=== PATIENT | female | born 1940 | race Caucasian/White ===

== ENCOUNTER → 2017-01-09 | Outpatient (CLI) | payer OTHER ==
--- NOTE | 2017-01-23 08:12 | MAMMOGRAPHY REPORT ---
BILATERAL DIGITAL SCREENING MAMMOGRAM WITH CAD: 01/09/2017 CLINICAL HISTORY: Routine screening. Patient has no complaints. TECHNIQUE: Bilateral CC and MLO views were obtained. Current study was also evaluated with a Compute r Aided Detection (CAD) system. COMPARISON: No prior exams were available for comparison. BREAST COMPOSITION: The tissue of both breasts is heterogeneously dense, which may obscure small mas ses. FINDINGS: There is an asymmetry in the lateral posterior right breast on the CC view, thought to pro ject superiorly on the MLO view which could represent normal overlapping tissue, although additional spot compression tomosynthesis views and possible ultrasound are recommended if prior outside mammogr ams are not obtained in a timely manner to assess for stability. There are scattered benign rim calcifications bilaterally. No other suspicious mass, architectural di stortion or cluster of microcalcifications is seen. IMPRESSION: ACR BI-RADS CATEGORY 0: INCOMPLETE EVALUATION: NEED ADDITIONAL IMAGING EVALUATION The asymmetry in the lateral, posterior right breast needs additional evaluation. Comparison to prio r outside mammograms would be useful to assess stability, but if the prior outside exams are not obta ined in a timely manner, additional imaging evaluation is needed. The patient will be called to schedule an appointment. Approximately 10% of breast cancers are not detected with mammography. A negative mammographic report should not delay biopsy if a clinically suggestive mass is present. Mari Perry M.D. ay/:01/21/2017 15:47:58 Travel Accommodation Inspector: Anna ALVARADO([place])(Saroj), [facility] letter sent: Need Priors 0 BI-RADS Code: ACR BI-RADS Category 0: Incomplete Evaluation: Need Additional Imaging Evaluation
== END | disposition home or self-care (01) ==
LOC: C.MAMM 13:36
PROVIDERS: ATTEND Neuromusculoskeletal Medicine & OMM
DX: Z12.31 Encounter for screening mammogram for malignant neoplasm of breast (principal); N64.89 Other specified disorders of breast

== ENCOUNTER → 2017-02-06 | Outpatient (CLI) | payer OTHER ==
--- NOTE | 2017-02-06 13:38 | MAMMOGRAPHY REPORT ---
UNILATERAL RIGHT DIGITAL DIAGNOSTIC MAMMOGRAM TOMOSYNTHESIS AND TARGETED RIGHT ULTRASOUND: 02/06/2017 CLINICAL HISTORY: Callback from screening mammogram for right breast asymmetry. TECHNIQUE: Breast tomosynthesis in addition to standard 2D mammography was performed. Spot compress ion right CC and MLO 2-D and tomosynthesis images were obtained. COMPARISON: Comparison is made to exam dated: 01/09/2017 mammogram - [facility]. Prior outside mammograms dated 11/14/2015, 01/09/2014, 01/04/2013, 02/06/2011, 11/22/2008. BREAST COMPOSITION: The tissue of the right breast is heterogeneously dense, which may obscure small masses. FINDINGS: The previously described asymmetry seen within the right lateral breast on the cc view, tho ught to project superiorly on the MLO view, effaces on the additional spot compression views and has the appearance of normal fibroglandular tissue on the additional tomosynthesis images. No suspicious mass, architectural distortion, or other suspicious finding is seen on the additional views. A circ umscribed 7 mm oval mass in the right upper outer quadrant is stable dating back to the 2008 exam and is consistent with a benign intramammary lymph node. Targeted ultrasound was performed of the right lateral breast in the region of the mammographic asymm etry. Sonographically normal tissue is seen, without evidence of a mass or other suspicious sonograp hic abnormality. IMPRESSION: ACR BI-RADS CATEGORY 2: BENIGN, TARGETED ULTRASOUND ACR BI-RADS CATEGORY 2: BENIGN The right breast asymmetry effaces on the additional views, without corresponding suspicious sonograp hic abnormality evident. Findings are benign and compatible with normal fibroglandular tissue. Ther e is no mammographic or targeted sonographic evidence of malignancy. A 1 year screening mammogram is recommended. The patient has been verbally notified of the results. Approximately 10% of breast cancers are not detected with mammography. A negative mammographic report should not delay biopsy if a clinically suggestive mass is present. Ligia Puckett M.D. ah/:02/06/2017 09:04:45 Unstacker: Anna PRICE)(Saroj), [facility] letter sent: Normal 1/2 BI-RADS Code: ACR BI-RADS Category 2: Benign Ultrasound BI-RADS: ACR BI-RADS Category 2: Benign
== END | disposition home or self-care (01) ==
LOC: C.MAMM 08:38
PROVIDERS: ATTEND Neuromusculoskeletal Medicine & OMM
DX: N64.89 Other specified disorders of breast (principal)

== ENCOUNTER → 2017-03-11 | Outpatient (CLI) | payer OTHER ==
[2017-03-11 11:06] LABS: BASO % 0.7 %; BASO ABS # 0.04 K/uL (0-0.2); EOS % 2.5 %; EOS ABS # 0.15 K/uL (0-0.5); HEMATOCRIT 40.8 % (37-47); HEMOGLOBIN 13.5 g/dL (12.0-16.0); LYMPH % 23.7 %; LYMPH ABS # 1.41 K/uL (1.2-3.4); MEAN CELL VOLUME 90.3 fL (80-100); MEAN CORPUSCULAR HEMOGLOBIN 29.9 pg (25-34); MEAN CORPUSCULAR HGB CONC 33.1 g/dl (32-36); MEAN PLATELET VOLUME 10.6 fL (7.4-10.4); NEUT % 68.1 %; NEUT ABS # 4.06 K/uL (1.4-6.5); PLATELET COUNT 190 K/uL (130-400); RED CELL DISTRIBUTION WIDTH CV 13.6 % (11.5-14.5); RED CELL DISTRIBUTION WIDTH SD 44.7 fL (36.4-46.3); WHITE BLOOD COUNT 5.96 K/uL (4.8-10.8)
[2017-03-11 11:15] LABS: ALBUMIN 3.8 gm/dl (3.4-5.0); ALT/SGPT 18 U/L (12-78); AST/SGOT 15 U/L (15-37); BLOOD UREA NITROGEN 17 mg/dl (7-18); CARBON DIOXIDE 30 mmol/L (21-32); CREATININE 0.83 mg/dl (0.60-1.20); GLUCOSE 93 mg/dl (70-99); POTASSIUM 3.8 mmol/L (3.5-5.1); SODIUM 139 mmol/L (136-145)
[2017-03-11 11:16] LABS: ALKALINE PHOSPHATASE 121 U/L (45-117); CHOLESTEROL 137 mg/dl (0-200); LDL CHOLESTEROL CALCULATED 47 mg/dl; TOTAL PROTEIN 6.8 gm/dl (6.4-8.2)
== END | disposition home or self-care (01) ==
LOC: C.LABBC 08:33
PROVIDERS: ATTEND Neuromusculoskeletal Medicine & OMM
DX: Z00.00 Encounter for general adult medical examination without abnormal findings (principal); I10 Essential (primary) hypertension; E78.5 Hyperlipidemia, unspecified

== ENCOUNTER → 2017-04-23 | Outpatient (CLI) | payer OTHER | END | disposition home or self-care (01) | LOC: C.MAMM 14:51 | PROVIDERS: ATTEND Neuromusculoskeletal Medicine & OMM | DX: Z00.00 Encounter for general adult medical examination without abnormal findings (principal); M81.0 Age-related osteoporosis without current pathological fracture ==

== ENCOUNTER 2022-10-06 21:01 | Inpatient (IN) ==
[2022-10-06] MEDS ORDERED: ONDANSETRON INJ 2 MG/ML 2 ML VIAL IV STA (21:26)
[2022-10-06] MEDS ORDERED: SODIUM CHLORIDE 0.9% 1000ML 500 ML IV ONE (21:26)
[2022-10-06 22:21] LABS: Albumin Level 3.7 gm/dl (3.4-5.0); BUN Creatinine Ratio 65.9 (10-20); Bilirubin Direct 0.1 mg/dl (0-0.2); Bilirubin,Total 0.5 mg/dl (0.2-1.0); Calcium 8.7 mg/dl (8.6-10.3); Creatinine Clr Calc Pharmacy 49.6 ml/min; Est GFR (African American) 73.4 ml/min; Est GFR (Non-African American) 63.4 ml/min; Potassium 4.4 mmol/L (3.5-5.1); Total Protein 5.7 gm/dl (6.0-8.3)
[2022-10-06 22:31] LABS: Basophils # (auto) 0.27 K/uL (0-0.2); Basophils % (auto) 1.1 %; Eosinophils # (auto) 0.19 K/uL (0-0.50); Eosinophils % (auto) 0.8 %; Hematocrit (blood only) 34.9 % (37.0-47.0); Hemoglobin 11.2 g/dl (12.0-16.0); Immature Granulocytes % (auto) 0.8 %; Lymphocytes # (auto) 0.73 K/uL (1.2-3.4); Lymphocytes % (auto) 3.1 %; Mean Corpuscular Hemoglobin 26.5 pg (25.0-34.0); Mean Corpuscular Hgb Conc 32.1 g/dL (32.0-36.0); Mean Corpuscular Volume 82.7 fL (80.0-100.0); Mean Platelet Volume 9.6 fL (9.4-12.4); Monocytes # (auto) 0.66 K/uL (0.11-0.59); Monocytes % (auto) 2.8 %; Neutrophils % (auto) 91.4 %; Platelet Count 1252 K/uL (130-400); RDW Standard Deviation 48.3 fL (36.4-46.3); Red Blood Count 4.22 M/uL (4.20-5.40); White Blood Count 23.75 K/ul (4.8-10.8)
[2022-10-06 22:32] LABS: INR 1.2 (0.9-1.1); Partial Thromboplastin Ratio 0.9; Prothrombin Time 13.1 Seconds (9.0-12.0)
[2022-10-07] MEDS ORDERED: PANTOPRAZOLE BOLUS/DRIP 1 EACH IV STA (00:23)
[2022-10-07] MEDS ORDERED: PANTOprazole 80 MG in DEXTROSE 5% 100 ML IV ONE (00:23)
--- NOTE | 2022-10-07 00:23 | Emergency Department Note ---
History of Present Illness General Chief complaint: Diarrhea Stated complaint: BLOODY DIARRHEA Time Seen by Provider: 10/06/22 21:20 History of Present Illness Provider Complaint: + nausea, + vomiting, + diarrhea and + abdominal pain Onset (ago): day(s) 1 Description of Vomiting: no bilious, no blood-streaked, no bloody or no coffee grounds Description of Diarrhea: + tarry and + bloody (bright red) Associated Abdominal Pain: Yes Location of pain: + diffuse Severity: moderate Maximum Pain Intensity: 6 Current Pain Intensity: 6 Pain Consistency: + intermittent Relieved By: + none Exacerbated By: + none Context: no foreign travel, no recent antibiotic use, no alcohol abuse, no trauma, no anticoagulant use, no NSAID use, no smoking or no marijuana use Associated symptoms: + weakness; no chest pain, no cough, no diaphoresis, no fever/chills, no headaches, no rash, no fecal incontinence, no altered mental status, no anxiety or no bloating HPI Narrative: History of IBS. Near syncope Home Medications Medication Instructions Recorded Confirmed Type aspirin 81 mg tablet,delayed 81 mg PO QPM #90 tabs 04/05/21 10/06/22 Rx release multivitamin 1 tab PO QAM 08/31/21 10/06/22 History propylene glycol 0.6 % eye drops 1 drp ophthalmic (eye) DAILY #20 mL 03/20/22 Rx (Systane Complete) xwjzwfevgw-sdodvzjcuyeid-auxxbeup 1 tab PO Q6H PRN Complex tension 08/11/22 10/06/22 Rx 50 mg-325 mg-40 mg tablet headache #120 tabs amlodipine 5 mg tablet 5 mg PO QAM 10/06/22 10/06/22 History atorvastatin 40 mg tablet 40 mg PO Q OTHER DAY 10/06/22 10/06/22 History ibandronate 150 mg tablet 150 mg PO MONTHLY 10/06/22 10/06/22 History metoprolol succinate 25 mg 12.5 mg PO QAM 10/06/22 10/06/22 History tablet,extended release 24 hr valsartan 320 1 tab PO DAILY 10/06/22 10/06/22 History mg-hydrochlorothiazide 25 mg tablet Allergies Allergy/AdvReac Type Severity Reaction Status Date / Time Iodinated Contrast Media Allergy Intermediate "red dye Verified 10/06/22 22:24 injection" for scans - Hives Past Med/Surg History Medical History (Updated 10/07/22 @ 01:12 by Stephen Arreguin MD) Degenerative disc disease Diverticular disease Fibromyalgia Hyperlipidemia Hypertension IBS (irritable bowel syndrome) Migraines Osteoarthritis Urinary incontinence Surgical History History of ankle surgery x 2 - Rt History of appendectomy History of bladder surgery x 4 History of bowel resection History of breast biopsy History of cardiac cath 1989 & 1999 - no stents History of cataract surgery left cataract History of cervical spinal surgery limited ROM side to side History of colonoscopy History of hysterectomy JINA History of knee surgery Lt x 2 History of shoulder surgery Lt History of spinal surgery lumbar spine; hardware present History of wisdom tooth extraction Family History Uncle Colorectal cancer Sister Stroke Other Breast cancer No family history of adverse response to anesthesia Denies family history of Ovarian cancer Prostate cancer Myocardial infarction Social History Smoking Status: Never smoker Second Hand Exposure: No; Do You Dip or Chew Tobacco: No; Hx Alcohol Use: Yes Alcohol type: wine Alcohol Intake Frequency: Monthly or Less Hx Substance Use: No Preferred Language: Urdu Communication Ability: Effective Visual Impairment: No Limitations Hearing Ability: Normal Trip Motor Operator Required: No Beliefs That Will Affect Care: None marital status: / Current Living Situation: Alone current occupational status: retired Feels Safe at Home: Yes Childhood Exposure to Second-Hand Smoke: Yes Diet: regular Dental Care, Regularly: Yes Physical Activity Frequency: Daily Seatbelt Use: always Sunscreen Use: Yes Assistive Devices: Denture - Upper and Glasses Physical Exam 2 Vital Signs: Vital Signs - 24 hr 10/06/22 21:04 10/06/22 21:30 10/06/22 21:30 Temperature 36.6 C Temperature Source Oral Pulse Rate 104 H 101 H 110 H Pulse Rate from Sp O2 Sensor 100 H Pulse Rhythm Regular Pulse Strength Normal Respiratory Rate 18 18 20 Respiratory Effort / Characteristics Non-Labored Respiratory Depth Normal Respiratory Patter n Regular Blood Pressure 134/81 106/54 L Blood Pressure Ivet n 98 71 Blood Pressure Pos ition Lying Pulse Oximetry 98 96 94 Oxygen Delivery Me thod Room Air Room Air Room Air Sepsis Recent Feve r Within 48 Hours No Sepsis New/Unexpla ined Change in Men nick Status No Sepsis Action Take n by Nursing No Action Required 10/06/22 21:29 10/06/22 23:00 10/06/22 23:30 Temperature Temperature Source Pulse Rate 105 H 91 H 100 H Pulse Rate from Sp O2 Sensor Pulse Rhythm Pulse Strength Respiratory Rate 19 18 Respiratory Effort / Characteristics Respiratory Depth Respiratory Patter n Blood Pressure 113/58 L 118/57 L Blood Pressure Ivet n 76 77 Blood Pressure Pos ition Pulse Oximetry 95 96 Oxygen Delivery Me thod Room Air Room Air Sepsis Recent Feve r Within 48 Hours Sepsis New/Unexpla ined Change in Men nick Status Sepsis Action Take n by Nursing 10/07/22 00:00 Temperature Temperature Source Pulse Rate 96 H Pulse Rate from Sp O2 Sensor Pulse Rhythm Pulse Strength Respiratory Rate 15 Respiratory Effort / Characteristics Respiratory Depth Respiratory Patter n Blood Pressure 110/55 L Blood Pressure Ivet n 73 Blood Pressure Pos ition Pulse Oximetry 94 Oxygen Delivery Me thod Room Air Sepsis Recent Feve r Within 48 Hours Sepsis New/Unexpla ined Change in Men nick Status Sepsis Action Take n by Nursing Physical Exam: Physical Exam GENERAL: She is oriented to person, place, and time. She appears well-developed and well-nourished. She does not appear distressed. HENT: Exam performed. -Head: Normocephalic and atraumatic. -Right Ear: External ear normal. No mastoid erythema -Left Ear: External ear normal. No mastoid erythema -Mouth/Throat: The oropharynx is clear and moist. No trismus in the jaw. No dental abscesses or uvula swelling. No oropharyngeal exudate or tonsillar abscesses. EYES: Conjunctivae and EOM are normal.Right eye exhibits no discharge. Left eye exhibits no discharge. No scleral icterus. NECK: Normal range of motion. Neck supple. No JVD present. No tracheal deviation and normal range of motion present. CV: Normal rate, regular rhythm, normal heart sounds and intact distal pulses. There is no peripheral edema. Palpable radial pulses bue. PULM/CHEST: Effort normal and breath sounds normal. No respiratory distress. No stridor. She has no wheezes. She has no rales. -Chest Wall: She exhibits no tenderness. ABD: The abdomen is soft. Bowel sounds are normal. She has no distension. No mass is present. There is no tenderness. There is no rebound, no guarding, no Fortune's sign and no tenderness at McBurney's point. Rovsig negative Rectal: Performed with female nursing underground miner Sabrina at bedside. Melanotic stools mixed with bright red blood. MUSC/SKEL: Normal range of motion. There is no peripheral edema, tenderness or deformity. NEURO: Motor and sensation grossly intact. SKIN: Skin is warm and dry. She is not diaphoretic. PSYCH: She has a normal mood and affect. Behavior is normal. Judgment and thought content normal. Course Course 2119: The patient was evaluated in room B4. A complete history and physical exam was performed Cardiac monitoring: An order was placed for continuous cardiac monitoring. The monitor shows a rate of 100 with sinus rhythm interpreted by ks 0109: Vital signs stable. Labs show white blood cell count of 23.75. Hemoglobin 11.2. Patient on Protonix bolus and drip for GI bleed. Platelet count 1252. Patient has a chronically elevated hemoglobin level. Labs are otherwise within normal limits. Imaging shows wall thickening of the rectum wh ich could be seen with proctitis. Patient be treated with Z[facility]yn. [facility]. Administered Medications Pantoprazole Sodium 40 mg/ (Dextrose) 100 mls @ 20 mls/hr IV Q5H JD Stop: 11/06/22 00:44 Last Admin: 10/07/22 00:59 Dose: 8 mg/hr, 20 mls/hr Documented By: AGUSTO Discontinued Medications Sodium Chloride (Nss 1000ml) 500 mls @ 999 mls/hr IV .Q31M ONE Stop: 10/06/22 21:56 Last Infusion: 10/06/22 22:50 Dose: 0 mls/hr Documented By: Admin: 10/06/22 22:12 Dose: 999 mls/hr Documented By: AGUSTO Pantoprazole Sodium (Protonix Bolus/Drip) 0 mls @ 1 mls/hr IV ONE STA Stop: 10/07/22 00:24 Last Admin: 10/07/22 00:59 Dose: Not Given Documented By: AGUSTO Pantoprazole Sodium 80 mg/ (Dextrose) 120 mls @ 400 mls/hr IV NOW ONE Stop: 10/07/22 00:40 Last Admin: 10/07/22 00:59 Dose: 400 mls/hr Documented By: AGUSTO Ondansetron HCl (Ondansetron Inj 2 Mg/Ml 2 Ml Vial) 4 mg IV NOW STA Stop: 10/06/22 21:27 Last Admin: 10/06/22 22:12 Dose: 4 mg Documented By: AGUSTO Medical Decision Making Laboratory Data Attestation: I reviewed the patient's lab results. 10/06/22 21:52 10/06/22 21:52 Lab Results 10/06/22 10/06/22 10/06/22 Range/Units 21:52 21:52 21:52 WBC 23.75 H (4.8-10.8) K/ul RBC 4.22 (4.20-5.40) M/uL Hgb 11.2 L (12.0-16.0) g/dl Hct 34.9 L (37.0-47.0) % MCV 82.7 (80.0-100.0) fL MCH 26.5 (25.0-34.0) pg MCHC 32.1 (32.0-36.0) g/dL RDW Std Deviation 48.3 H (36.4-46.3) fL RDW Coeff of Raj 16.0 H (11.5-14.5) % Plt Count 1252 H* (130-400) K/uL MPV 9.6 (9.4-12.4) fL Immature Gran % (Auto) 0.8 % Neut % (Auto) 91.4 % Lymph % (Auto) 3.1 % Gosper % (Auto) 2.8 % Eos % (Auto) 0.8 % Baso % (Auto) 1.1 % Neut # (Auto) 21.70 H (1.40-6.50) K/uL Lymph # (Auto) 0.73 L (1.2-3.4) K/uL Gosper # (Auto) 0.66 H (0.11-0.59) K/uL Eos # (Auto) 0.19 (0-0.50) K/uL Baso # (Auto) 0.27 H (0-0.2) K/uL Immature Gran # (Auto) 0.20 (0.01-0.20) K/uL PT 13.1 H (9.0-12.0) Seconds INR 1.2 H (0.9-1.1) APTT 26.0 (21.0-31.0) Seconds PTT Ratio 0.9 Sodium (136-145) mmol/L Potassium (3.5-5.1) mmol/L Chloride (98-107) mmol/L Carbon Dioxide (21-32) mmol/L Anion Gap (3-11) BUN (6-23) mg/dl Creatinine (0.6-1.2) mg/dl Est Cr Clr Drug Dosing ml/min Est GFR ( Amer) ml/min Est GFR (Non-Af Amer) ml/min BUN/Creatinine Ratio (10-20) Glucose (70-99(Fasting)) mg/dl Calcium (8.6-10.3) mg/dl Total Bilirubin (0.2-1.0) mg/dl Direct Bilirubin (0-0.2) mg/dl AST (13-39) U/L ALT (7-52) U/L Alkaline Phosphatase (34-104) U/L Total Protein (6.0-8.3) gm/dl Albumin (3.4-5.0) gm/dl Lipase (11-82) U/L Blood Type O Positive Antibody Screen NEGATIVE 10/06/22 Range/Units 21:52 WBC (4.8-10.8) K/ul RBC (4.20-5.40) M/uL Hgb (12.0-16.0) g/dl Hct (37.0-47.0) % MCV (80.0-100.0) fL MCH (25.0-34.0) pg MCHC (32.0-36.0) g/dL RDW Std Deviation (36.4-46.3) fL RDW Coeff of Raj (11.5-14.5) % Plt Count (130-400) K/uL MPV (9.4-12.4) fL Immature Gran % (Auto) % Neut % (Auto) % Lymph % (Auto) % Gosper % (Auto) % Eos % (Auto) % Baso % (Auto) % Neut # (Auto) (1.40-6.50) K/uL Lymph # (Auto) (1.2-3.4) K/uL Gosper # (Auto) (0.11-0.59) K/uL Eos # (Auto) (0-0.50) K/uL Baso # (Auto) (0-0.2) K/uL Immature Gran # (Auto) (0.01-0.20) K/uL PT (9.0-12.0) Seconds INR (0.9-1.1) APTT (21.0-31.0) Seconds PTT Ratio Sodium 140 (136-145) mmol/L Potassium 4.4 (3.5-5.1) mmol/L Chloride 105 (98-107) mmol/L Carbon Dioxide 27 (21-32) mmol/L Anion Gap 8 (3-11) BUN 56 H (6-23) mg/dl Creatinine 0.85 (0.6-1.2) mg/dl Est Cr Clr Drug Dosing 49.6 ml/min Est GFR ( Amer) 73.4 ml/min Est GFR (Non-Af Amer) 63.4 ml/min BUN/Creatinine Ratio 65.9 H (10-20) Glucose 151 H (70-99(Fasting)) mg/dl Calcium 8.7 (8.6-10.3) mg/dl Total Bilirubin 0.5 (0.2-1.0) mg/dl Direct Bilirubin 0.1 (0-0.2) mg/dl AST 17 (13-39) U/L ALT 10 (7-52) U/L Alkaline Phosphatase 65 (34-104) U/L Total Protein 5.7 L (6.0-8.3) gm/dl Albumin 3.7 (3.4-5.0) gm/dl Lipase 17 (11-82) U/L Blood Type Antibody Screen Imaging Data Radiologist's Impression: Abdomen/Pelvis CT 10/06/22 22:54 Exam(s): CT ABDOMEN + PELVIS Without Contrast EXAM: CT Abdomen and Pelvis Without Intravenous Contrast CLINICAL HISTORY: Reason for exam: abd pain. TECHNIQUE: Axial computed tomography images of the abdomen and pelvis without intravenous contrast. CTDI is 11.85 mGy and DLP is 551.45 mGy-cm. Automated exposure control was utilized for the study. A dose lowering technique was utilized adhering to the principles of ALARA. COMPARISON: CT abdomen and pelvis 08/31/2021. FINDINGS: Lung bases: Unremarkable. No mass. No consolidation. Heart: Trace pericardial effusion. ABDOMEN: Liver: Unremarkable. Gallbladder and bile ducts: Cholelithiasis. No ductal dilation. Pancreas: Unremarkable. No ductal dilation. Spleen: Unremarkable. No splenomegaly. Adrenals: Unremarkable. No mass. Kidneys and ureters: Right renal cyst appears unchanged. No obstructing stones. No hydronephrosis. Stomach and bowel: Wall thickening of the rectum. Anastomotic suture of the sigmoid colon. Colonic diverticulosis. No obstruction. PELVIS: Appendix: No findings to suggest acute appendicitis. Bladder: Unremarkable. No stones. Reproductive: Hysterectomy. ABDOMEN and PELVIS: Intraperitoneal space: Unremarkable. No free air. No significant fluid collection. Bones/joints: Severe osteoarthritis of the femoral acetabular joints, right greater than left. Postsurgical changes seen related to laminectomy and fusion of L5-S1. Degenerative changes seen in the lumbar spine. Pelvic enthesopathy. No acute fracture. No dislocation. Soft tissues: Skin thickening and subcutaneous fat stranding overlying the sacrum along the gluteal cleft. Vasculature: Extensive atherosclerotic calcification of the abdominal aorta and branches. No abdominal aortic aneurysm. Lymph nodes: Unremarkable. No enlarged lymph nodes. IMPRESSION: 1. Wall thickening of the rectum. This could be seen with proctitis and appropriate clinical scenario. 2. Skin thickening and subcutaneous fat stranding overlying the sacrum along the gluteal cleft. This could represent cellulitis. Direct visualization is recommended. 3. Cholelithiasis. Electronically signed by: Jase Velazco MD 10/07/22 01:01 AM [facility] Narrative 2120: The patient was evaluated in room B4. A complete history and physical exam was performed Cardiac monitoring: An order was placed for continuous cardiac monitoring. The monitor shows a rate of 100 with sinus rhythm interpreted by ks 0109: Vital signs stable. Labs show white blood cell count of 23.75. Hemoglobin 11.2. Patient on Protonix bolus and drip for GI bleed. Platelet count 1252. Patient has a chronically elevated hemoglobin level. Labs are othe rwise within normal limits. Imaging shows wall thickening of the rectum which could be seen with proctitis. Patient be treated with Zosyn. [facility]. Impression & Plan GI bleed, Acute proctitis Discharge Plan Visit Data Chief Complaint: Diarrhea Stated Complaint: BLOODY DIARRHEA ED Provider: Stephen Arreguin Discharge Problem: GI bleed, Acute proctitis Patient Disposition: Admitted As Inpatient Forms Stand Alone Forms: My [facility] Prescriptions Prescriptions: No Action Systane Complete 0.6 % drops 1 drp OP DAILY Qty: 20 1RF hnaijesbnz-jaippedsiarmf-lkll 50-325-40 mg tablet 1 tab PO Q6H PRN (Reason: Complex tension headache) Qty: 120 0RF aspirin 81 mg tablet,delayed release (DR/EC) 81 mg PO QPM Qty: 90 1RF atorvastatin 40 mg tablet 40 mg PO Q OTHER DAY Rx Instructions: TAKES QPM. amlodipine 5 mg tablet 5 mg PO QAM Rx Instructions: TAKE 1 TABLET EVERY MORNING metoprolol succinate 25 mg tablet extended release 24 hr 12.5 mg PO QAM Rx Instructions: TAKE HALF TABLET BY MOUTH IN THE MORNING ibandronate 150 mg tablet 150 mg PO MONTHLY Rx Instructions: USUALLY AROUND THE OF THE MONTH. valsartan-hydrochlorothiazide 320-25 mg tablet 1 tab PO DAILY Rx Instructions: TAKE 1 TABLET ONCE DAILY multivitamin Tablet 1 tab PO QAM Referrals Referrals: Seun Hillman DO [Primary Care Provider] -
[2022-10-07] MEDS ORDERED: PANTOprazole 40 MG in DEXTROSE 5% 100 ML IV SCH (00:45)
--- NOTE | 2022-10-07 01:02 | CT Scan Report ---
Exam(s): CT ABDOMEN + PELVIS Without Contrast EXAM: CT Abdomen and Pelvis Without Intravenous Contrast CLINICAL HISTORY: Reason for exam: abd pain. TECHNIQUE: Axial computed tomography images of the abdomen and pelvis without intravenous contrast. CTDI is 11.85 mGy and DLP is 551.45 mGy-cm. Automated exposure control was utilized for the study. A dose lowering technique was utilized adhering to the principles of ALARA. COMPARISON: CT abdomen and pelvis 08/31/2021. FINDINGS: Lung bases: Unremarkable. No mass. No consolidation. Heart: Trace pericardial effusion. ABDOMEN: Liver: Unremarkable. Gallbladder and bile ducts: Cholelithiasis. No ductal dilation. Pancreas: Unremarkable. No ductal dilation. Spleen: Unremarkable. No splenomegaly. Adrenals: Unremarkable. No mass. Kidneys and ureters: Right renal cyst appears unchanged. No obstructing stones. No hydronephrosis. Stomach and bowel: Wall thickening of the rectum. Anastomotic suture of the sigmoid colon. Colonic diverticulosis. No obstruction. PELVIS: Appendix: No findings to suggest acute appendicitis. Bladder: Unremarkable. No stones. Reproductive: Hysterectomy. ABDOMEN and PELVIS: Intraperitoneal space: Unremarkable. No free air. No significant fluid collection. Bones/joints: Severe osteoarthritis of the femoral acetabular joints, right greater than left. Postsurgical changes seen related to laminectomy and fusion of L5-S1. Degenerative changes seen in the lumbar spine. Pelvic enthesopathy. No acute fracture. No dislocation. Soft tissues: Skin thickening and subcutaneous fat stranding overlying the sacrum along the gluteal cleft. Vasculature: Extensive atherosclerotic calcification of the abdominal aorta and branches. No abdominal aortic aneurysm. Lymph nodes: Unremarkable. No enlarged lymph nodes. IMPRESSION: 1. Wall thickening of the rectum. This could be seen with proctitis and appropriate clinical scenario. 2. Skin thickening and subcutaneous fat stranding overlying the sacrum along the gluteal cleft. This could represent cellulitis. Direct visualization is recommended. 3. Cholelithiasis. Electronically signed by: Jase Velazco MD 10/07/22 01:01 AM
[2022-10-07] MEDS ORDERED: PIPERACILLIN/TAZOBACTAM 4.5 GM/120 ML BAG IV ONE (01:05)
--- NOTE | 2022-10-07 01:26 | History & Physical Report ---
Date of Service October 07, 2022 Assessment & Plan (1) Bloody diarrhea: Plan: 81 yo female with PMHx of HTN, HLD, CAD, migraines, IBS, and osteoporosis presents with bloody diarrhea. #GI bleed -presented with 1 day explosive bloody diarrhea. Stools were black and with bright red blood in toilet. Associated N/V and generalized weakness. No prior h/o GI bleed. Does take daily asa. +leukocytosis however does not meet septic criteria nor toxic appearing. -CT A/P: wall thickening of rectum. ?proctitis -Hgb 11.2, baseline ~15. -NPO, LR @ 100, protonix bid -started on zosyn in ED. Continue this empirically given leukocytosis. -stool PCR, c.diff pending -FOBT all stools -GI consulted #HTN -cont. amlodipine, metoprolol, valsartan-HCTZ when able #CAD -hold asa -cont. metoprolol, statin when able #HLD -cont. statin when able DVT ppx: SCDs FEN/GI: NPO, LR @ 100 Code Status: Full; pt will discuss with son who has papers at home Dispo: PCU (2) Heart disease: (3) Hyperlipidemia: (4) Migraine headache: (5) Osteoporosis: (6) Benign essential hypertension: History of Present Illness Chief Complaint: bloody diarrhea Primary Care Provider: Seun Hillman, 81 yo female with PMHx of HTN, HLD, CAD, migraines, IBS, and osteoporosis presents with bloody diarrhea. Patient states she has been constipated the past few days then around 6pm earlier today she sat on the toilet and had explosive diarrhea. Diarrhea initially was brown but turned into black stool with bright red blood in toilet bowl. She had >10 diarrheal stools. Associated nausea, abd bloating, generalized weakness, and vomit x1. Does also endorse a dry cough that started yesterday morning. Denies headache, chest pain, congestion, sore throat, sob, abd pain, hematemesis, dysuria, hematuria. No recent travel. Filters her water at home. No prior history of GI bleed. Allergies Allergy/AdvReac Type Severity Reaction Status Date / Time Iodinated Contrast Media Allergy Intermediate "red dye Verified 10/06/22 22:24 injection" for scans - Hives Home Medications Medication Instructions Recorded Confirmed Type aspirin 81 mg tablet,delayed 81 mg PO QPM #90 tabs 04/05/21 10/06/22 Rx release multivitamin 1 tab PO QAM 08/31/21 10/06/22 History propylene glycol 0.6 % eye drops 1 drp ophthalmic (eye) DAILY #20 mL 03/20/22 10/06/22 Rx (Systane Complete) amlodipine 5 mg tablet 5 mg PO QAM 10/06/22 10/06/22 History atorvastatin 40 mg tablet 40 mg PO Q OTHER DAY 10/06/22 10/06/22 History ibandronate 150 mg tablet 150 mg PO MONTHLY 10/06/22 10/06/22 History metoprolol succinate 25 mg 12.5 mg PO QAM 10/06/22 10/06/22 History tablet,extended release 24 hr valsartan 320 1 tab PO DAILY 10/06/22 10/06/22 History mg-hydrochlorothiazide 25 mg tablet [id number]-qzxxayqbtuncu-qoxvjrvb 1 tab PO Q6H PRN Complex tension 10/07/22 Rx 50 mg-325 mg-40 mg tablet headache #120 tabs Past Med/Surg History Medical History Degenerative disc disease Diverticular disease Fibromyalgia Hyperlipidemia Hypertension IBS (irritable bowel syndrome) Migraines Osteoarthritis Urinary incontinence Surgical History History of ankle surgery x 2 - Rt History of appendectomy History of bladder surgery x 4 History of bowel resection History of breast biopsy History of cardiac cath 1989 & 1999 - no stents History of cataract surgery left cataract History of cervical spinal surgery limited ROM side to side History of colonoscopy History of hysterectomy JINA History of knee surgery Lt x 2 History of shoulder surgery Lt History of spinal surgery lumbar spine; hardware present History of wisdom tooth extraction Family History Uncle Colorectal cancer Sister Stroke Other Breast cancer No family history of adverse response to anesthesia Denies family history of Ovarian cancer Prostate cancer Myocardial infarction Social History Smoking Status: Never smoker Second Hand Exposure: No; Do You Dip or Chew Tobacco: No; Hx Alcohol Use: Yes Alcohol type: beer and wine Alcohol Intake Frequency: Monthly or Less Hx Substance Use: No Preferred Language: Persian Communication Ability: Effective Visual Impairment: No Limitations Hearing Ability: Normal Electronics Technician Required: No Beliefs That Will Affect Care: None marital status: / Current Living Situation: Alone current occupational status: retired Other Information That Helps Us Care for You: No Feels Safe at Home: Yes Safety Concerns: Feels Safe At This Time Childhood Exposure to Second-Hand Smoke: Yes Diet: regular Dental Care, Regularly: Yes Physical Activity Frequency: Daily Seatbelt Use: always Sunscreen Use: Yes Assistive Devices: Walker and Wheelchair Assistive Devices Comment: uses walker PRN Review of Systems Review of Systems: All systems reviewed & are unremarkable except as noted in HPI & below Physical Exam Physical Exam: Constitutional: in no acute distress, pleasant and normal affect, intact memory. AOx3. Vitals as above. HEENT: No scleral injection or discharge.Moist mucous membranes. Neck: Supple without lymphadenopathy or thyromegaly. Trachea midline. Lungs: Clear to auscultation bilaterally with good effort. No wheezes/rales/rhonchi. Persistent dry cough during examination. Cardiac: Regular rhythm. Tachycardia.No murmurs.No extremity edema. 2+ distal peripheral pulses. Abdomen: Bowel sounds present. Soft and nondistended.Mild diffuse tenderness. No guarding or rebound tenderness. No hepatosplenomegaly. MSK: No cyanosis or clubbing. Extremities motor strength 5/5. Skin: No abnormal rashes, warm, dry. Dry skin at top of gluteal cleft without ulceration. Rectal: Per ED note, melanotic stools mixed with bright red blood. Neurologic: no focal deficits Results & Data Results & Data Vital Signs (Past 12 Hours) Vital Signs Temp Pulse Resp BP Pulse Ox O2 Del Method 10/07/22 01:00 102 H 17 107/60 93 Room Air 10/07/22 00:00 96 H 15 110/55 L 94 Room Air 10/06/22 23:30 100 H 18 118/57 L 96 Room Air 10/06/22 23:00 91 H 19 113/58 L 95 Room Air 10/06/22 21:29 105 H 10/06/22 21:30 110 H 20 106/54 L 94 Room Air 10/06/22 21:30 101 H 18 96 Room Air 10/06/22 21:04 36.6 C 104 H 18 134/81 98 Room Air Laboratory Results Laboratory Results WBC 23.75 K/ul (4.8-10.8) H 10/06/22 21:52 RBC 4.22 M/uL (4.20-5.40) 10/06/22 21:52 Hgb 11.2 g/dl (12.0-16.0) L 10/06/22 21:52 Hct 34.9 % (37.0-47.0) L 10/06/22 21:52 MCV 82.7 fL (80.0-100.0) 10/06/22 21:52 MCH 26.5 pg (25.0-34.0) 10/06/22 21:52 MCHC 32.1 g/dL (32.0-36.0) 10/06/22 21:52 RDW Std Deviation 48.3 fL (36.4-46.3) H 10/06/22 21:52 RDW Coeff of Raj 16.0 % (11.5-14.5) H 10/06/22 21:52 Plt Count 1252 K/uL (130-400) H* 10/06/22 21:52 MPV 9.6 fL (9.4-12.4) 10/06/22 21:52 Immature Gran % (Auto) 0.8 % 10/06/22 21:52 Neut % (Auto) 91.4 % 10/06/22 21:52 Lymph % (Auto) 3.1 % 10/06/22 21:52 Glades % (Auto) 2.8 % 10/06/22 21:52 Eos % (Auto) 0.8 % 10/06/22 21:52 Baso % (Auto) 1.1 % 10/06/22 21:52 Neut # (Auto) 21.70 K/uL (1.40-6.50) H 10/06/22 21:52 Lymph # (Auto) 0.73 K/uL (1.2-3.4) L 10/06/22 21:52 Glades # (Auto) 0.66 K/uL (0.11-0.59) H 10/06/22 21:52 Eos # (Auto) 0.19 K/uL (0-0.50) 10/06/22 21:52 Baso # (Auto) 0.27 K/uL (0-0.2) H 10/06/22 21:52 Immature Gran # (Auto) 0.20 K/uL (0.01-0.20) 10/06/22 21:52 PT 13.1 Seconds (9.0-12.0) H 10/06/22 21:52 INR 1.2 (0.9-1.1) H 10/06/22 21:52 APTT 26.0 Seconds (21.0-31.0) 10/06/22 21:52 PTT Ratio 0.9 10/06/22 21:52 Sodium 140 mmol/L (136-145) 10/06/22 21:52 Potassium 4.4 mmol/L (3.5-5.1) 10/06/22 21:52 Chloride 105 mmol/L (98-107) 10/06/22 21:52 Carbon Dioxide 27 mmol/L (21-32) 10/06/22 21:52 Anion Gap 8 (3-11) 10/06/22 21:52 BUN 56 mg/dl (6-23) H 10/06/22 21:52 Creatinine 0.85 mg/dl (0.6-1.2) 10/06/22 21:52 Est Cr Clr Drug Dosing 49.6 ml/min 10/06/22 21:52 Est GFR ( Amer) 73.4 ml/min 10/06/22 21:52 Est GFR (Non-Af Amer) 63.4 ml/min 10/06/22 21:52 BUN/Creatinine Ratio 65.9 (10-20) H 10/06/22 21:52 Glucose 151 mg/dl (70-99(Fasting)) H 10/06/22 21:52 Calcium 8.7 mg/dl (8.6-10.3) 10/06/22 21:52 Total Bilirubin 0.5 mg/dl (0.2-1.0) 10/06/22 21:52 Direct Bilirubin 0.1 mg/dl (0-0.2) 10/06/22 21:52 AST 17 U/L (13-39) 10/06/22 21:52 ALT 10 U/L (7-52) 10/06/22 21:52 Alkaline Phosphatase 65 U/L (34-104) 10/06/22 21:52 Total Protein 5.7 gm/dl (6.0-8.3) L 10/06/22 21:52 Albumin 3.7 gm/dl (3.4-5.0) 10/06/22 21:52 Lipase 17 U/L (11-82) 10/06/22 21:52 Blood Type O Positive 10/06/22 21:52 Antibody Screen NEGATIVE 10/06/22 21:52 Impressions Abdomen/Pelvis CT 10/06/22 22:54 Exam(s): CT ABDOMEN + PELVIS Without Contrast EXAM: CT Abdomen and Pelvis Without Intravenous Contrast CLINICAL HISTORY: Reason for exam: abd pain. TECHNIQUE: Axial computed tomography images of the abdomen and pelvis without intravenous contrast. CTDI is 11.85 mGy and DLP is 551.45 mGy-cm. Automated exposure control was utilized for the study. A dose lowering technique was utilized adhering to the principles of ALARA. COMPARISON: CT abdomen and pelvis 08/31/2021. FINDINGS: Lung bases: Unremarkable. No mass. No consolidation. Heart: Trace pericardial effusion. ABDOMEN: Liver: Unremarkable. Gallbladder and bile ducts: Cholelithiasis. No ductal dilation. Pancreas: Unremarkable. No ductal dilation. Spleen: Unremarkable. No splenomegaly. Adrenals: Unremarkable. No mass. Kidneys and ureters: Right renal cyst appears unchanged. No obstructing stones. No hydronephrosis. Stomach and bowel: Wall thickening of the rectum. Anastomotic suture of the sigmoid colon. Colonic diverticulosis. No obstruction. PELVIS: Appendix: No findings to suggest acute appendicitis. Bladder: Unremarkable. No stones. Reproductive: Hysterectomy. ABDOMEN and PELVIS: Intraperitoneal space: Unremarkable. No free air. No significant fluid collection. Bones/joints: Severe osteoarthritis of the femoral acetabular joints, right greater than left. Postsurgical changes seen related to laminectomy and fusion of L5-S1. Degenerative changes seen in the lumbar spine. Pelvic enthesopathy. No acute fracture. No dislocation. Soft tissues: Skin thickening and subcutaneous fat stranding overlying the sacrum along the gluteal cleft. Vasculature: Extensive atherosclerotic calcification of the abdominal aorta and branches. No abdominal aortic aneurysm. Lymph nodes: Unremarkable. No enlarged lymph nodes. IMPRESSION: 1. Wall thickening of the rectum. This could be seen with proctitis and appropriate clinical scenario. 2. Skin thickening and subcutaneous fat stranding overlying the sacrum along the gluteal cleft. This could represent cellulitis. Direct visualization is recommended. 3. Cholelithiasis. Electronically signed by: Jase Velazco MD 10/07/22 01:01 AM Supervising Physician Co-Signing Physician Notes Patient seen and examined, chart reviewed, case discussed with Dr. Jimenez and I agree with the assessment and plan as documented above. In brief, patient is an 81yo female with history of HTN, HLP, FM and IBS presenting with melena, profuse diarrhea following a prolonged period of constipation. She denies chest pain cough, SOB. Denies dizziness. No nausea. No additional complaints at this time. In the ER she is afebrile, HD stable with some mild sinus tachycardia General - resting comfortably, NAD Skin - warm, dry, intact, no rashes or lesions HEENT - NC/AT, PERRL, MMM, neck supple Heart - +S1/S2, regular Lungs - CTA Abd - soft, non-distended, mild tenderness in lower abdomen without rebound/guarding or peritonitis Ext - warm, well perfused Neuro - no deficits Labs and images reviewed Elevation of WBC to 23.75. Mild normochromic/normocytic anemia with Hgb=11.2, Hct=34.9. Plt elevated at 1252 near baseline Elevation of BUN=56 CT abdomen with wall thickening of the rectum, possible proctitis Assessment/plan: 81yo female presenting with diarrhea, melena. CT as above with proctitis. Likely secondary to constipation then diarrhea. Elevation of BUN raises concern for possible UGIB, doubtful -Continue Protonix BID -Obtain stool PCR study -Gentle IVF -GI consult appreciated. Remainder as above Resident Activity Tracking Resident Involvement: Resident Care Provided Care Provided: [facility]
[2022-10-07] MEDS ORDERED: LACTATED RINGER'S 1,000 ML IV SCH (02:30)
[2022-10-07] MEDS ORDERED: PANTOprazole 40 MG in SYRINGE 0 ML IV ONE (02:30)
[2022-10-07] MEDS ORDERED: ONDANSETRON INJ 2 MG/ML 2 ML VIAL IV PRN (03:46)
[2022-10-07] MEDS ORDERED: ACETAMINOPHEN 1,000 MG/100 ML VIAL IV PRN (03:46)
[2022-10-07 06:44] LABS: Hematocrit (blood only) 29.4 % (37.0-47.0); Hemoglobin 9.5 g/dl (12.0-16.0); Mean Corpuscular Hgb Conc 32.3 g/dL (32.0-36.0); Mean Corpuscular Volume 80.3 fL (80.0-100.0); Mean Platelet Volume 9.7 fL (9.4-12.4); Platelet Count 1082 K/uL (130-400); RDW Coefficient of Variation 15.9 % (11.5-14.5); RDW Standard Deviation 46.7 fL (36.4-46.3); Red Blood Count 3.66 M/uL (4.20-5.40); White Blood Count 18.04 K/ul (4.8-10.8)
[2022-10-07 07:01] LABS: INR 1.2 (0.9-1.1); Partial Thromboplastin Time 28.2 Seconds (21.0-31.0); Prothrombin Time 12.8 Seconds (9.0-12.0)
[2022-10-07 07:07] LABS: Basophils # (auto) 0.14 K/uL (0-0.2); Basophils % (auto) 0.8 %; Eosinophils # (auto) 0.14 K/uL (0-0.50); Eosinophils % (auto) 0.8 %; Immature Granulocytes # (auto) 0.09 K/uL (0.01-0.20); Immature Granulocytes % (auto) 0.5 %; Lymphocytes # (auto) 1.21 K/uL (1.2-3.4); Lymphocytes % (auto) 6.7 %; Monocytes # (auto) 0.88 K/uL (0.11-0.59); Monocytes % (auto) 4.9 %; Neutrophils # (auto) 15.58 K/uL (1.40-6.50); Neutrophils % (auto) 86.3 %; Rouleaux 1+
--- NOTE | 2022-10-07 07:38 | XRay Report ---
SINGLE VIEW CHEST CLINICAL HISTORY: Cough FINDINGS: An AP, portable, upright chest radiograph is obtained. No prior studies are available for c omparison at the time of dictation. The cardiomediastinal silhouette is unremarkable noting atheroscl erotic calcification of the thoracic aorta. Interstitial thickening is likely chronic. There is mild bibasilar scarring/atelectasis. No airspace consolidation or large pleural effusion is identified. No pneumothorax is seen. The skeletal structures are osteopenic. The bony thorax is grossly intact. IMPRESSION: No acute cardiopulmonary abnormality. ACT 112: Negative or not required by law. Electronically signed by: Mark Daugherty M.D. 10/07/2022 7:37 AM
[2022-10-07 07:43] LABS: BUN Creatinine Ratio 53.5 (10-20); Calcium 8.3 mg/dl (8.6-10.3); Creatinine Clr Calc Pharmacy 46.9 ml/min; Est GFR (African American) 72.4 ml/min; Est GFR (Non-African American) 62.5 ml/min; Magnesium 1.8 mg/dl (1.7-2.4); Potassium 3.4 mmol/L (3.5-5.1)
[2022-10-07] MEDS: PIPERACILLIN/TAZOBACTAM 4.5 GM in DEXTROSE 5% 100 ML IV SCH ×2 (08:27→16:21)
[2022-10-07] MEDS ORDERED: PANTOprazole 40 MG in SYRINGE 0 ML IV SCH (09:00)
[2022-10-07] MEDS: METOPROLOL SUCC 25MG EXT REL TAB PO SCH (09:34)
[2022-10-07] MEDS: D5NSS + 20MEQ KCL 20 MEQ/1,000 ML BAG IV SCH (09:36)
--- NOTE | 2022-10-07 10:09 | Gastrointestinal Consultation ---
Date of Consultation October 07, 2022 Assessment & Plan (1) GI bleed: Patient has leukocytosis and diarrhea that accompanied the bleeding. CT shows a possible proctitis. She does have a history of constipation with overflow diarrhea along with a history of hemorrhoids, however at present I would advise the followin) Obtain stool PCR & C diff studies, particularly in light of leukocytosis. 2) Will defer evaluation of the sacral cellulitis to primary team. Patient does continue on IV Zosyn at the present time. 3) Continue to monitor H/H. 4) Will add Protonix 40 mg BID in the event there is any component of upper GI bleeding. 5) Further recommendations pending results of testing. Supervising Physician Co-Signing Physician Notes I saw the patient and agree with the findings as documented by LINDSEY Perez History of Present Illness Reason for Consultation: "GI bleed" Attending Physician: Grupo Rodriges MD History of Present Illness Patient is an 81 yo female with PMH of HTN, HLD, CAD, Constipation with overflow diarrhea, & history of diverticulitis who presented with diarrhea with bright red blood per rectum as well as dark brown/red blood. She notes she was struggling with constipation and then had a significant episode of diarrhea. She notes >10 episodes of loose stools with nausea and bloating. She notes a cough and weakness as well. WBC count is 18,000 which is down from 23,000 on 10/06/22. H/H 9.5/29.4. Plt count is notably elevated at 1082. INR 1.2. K 3.4. BUN 46. Mg wnl. LFTs unremarkable. Procalcitonin negative. No prior history of GI bleed. CT abdomen/pelvis unfortunately was without contrast but noted concern for a sacral cellulitis and possible proctitis. No stool studies available at present. She is currently on IV Zosyn given the significant leukocytosis noted. She saw Armani Cabral PA-C of [facility] in fall and declined a colonoscopy at that time to follow-up after an episode of diverticulitis. Allergies Allergy/AdvReac Type Severity Reaction Status Date / Time Iodinated Contrast Media Allergy Intermediate "red dye Verified 10/06/22 22:24 injection" for scans - Hives Home Medications Medication Instructions Recorded Confirmed Type aspirin 81 mg tablet,delayed 81 mg PO QPM #90 tabs 04/05/21 10/06/22 Rx release multivitamin 1 tab PO QAM 08/31/21 10/06/22 History propylene glycol 0.6 % eye drops 1 drp ophthalmic (eye) DAILY #20 mL 03/20/22 10/06/22 Rx (Systane Complete) sdhklbzoar-shbecayiznucd-jcpikfhk 1 tab PO Q6H PRN Complex tension 08/11/22 10/06/22 Rx 50 mg-325 mg-40 mg tablet headache #120 tabs amlodipine 5 mg tablet 5 mg PO QAM 10/06/22 10/06/22 History atorvastatin 40 mg tablet 40 mg PO Q OTHER DAY 10/06/22 10/06/22 History ibandronate 150 mg tablet 150 mg PO MONTHLY 10/06/22 10/06/22 History metoprolol succinate 25 mg 12.5 mg PO QAM 10/06/22 10/06/22 History tablet,extended release 24 hr valsartan 320 1 tab PO DAILY 10/06/22 10/06/22 History mg-hydrochlorothiazide 25 mg tablet Patient History Medical History Degenerative disc disease Diverticular disease Fibromyalgia Hyperlipidemia Hypertension IBS (irritable bowel syndrome) Migraines Osteoarthritis Urinary incontinence Surgical History History of ankle surgery x 2 - Rt History of appendectomy History of bladder surgery x 4 History of bowel resection History of breast biopsy History of cardiac cath 1989 & 1999 - no stents History of cataract surgery left cataract History of cervical spinal surgery limited ROM side to side History of colonoscopy History of hysterectomy JINA History of knee surgery Lt x 2 History of shoulder surgery Lt History of spinal surgery lumbar spine; hardware present History of wisdom tooth extraction Family History Uncle Colorectal cancer Sister Stroke Other Breast cancer No family history of adverse response to anesthesia Denies family history of Ovarian cancer Prostate cancer Myocardial infarction Social History Smoking Status: Never smoker Second Hand Exposure: No; Do You Dip or Chew Tobacco: No; Hx Alcohol Use: Yes Alcohol type: beer and wine Alcohol Intake Frequency: Monthly or Less Hx Substance Use: No Preferred Language: Hungarian Communication Ability: Effective Visual Impairment: No Limitations Hearing Ability: Normal Split And Drum Room Supervisor Required: No Beliefs That Will Affect Care: None marital status: / Current Living Situation: Alone current occupational status: retired Other Information That Helps Us Care for You: No Feels Safe at Home: Yes Safety Concerns: Feels Safe At This Time Childhood Exposure to Second-Hand Smoke: Yes Diet: regular Dental Care, Regularly: Yes Physical Activity Frequency: Daily Seatbelt Use: always Sunscreen Use: Yes Assistive Devices: Walker and Wheelchair Assistive Devices Comment: uses walker PRN Review of Systems Constitutional: no fever and no chills Gastrointestinal: + abdominal pain; no hematemesis and no blood in stools Psychiatric: no problem reported Physical Exam Constitutional: well developed Respiratory: normal respiratory effort Cardiovascular: Rate/Rhythm: regular rate Gastrointestinal (Abdomen): normal bowel sounds, soft, nontender, no hepatosplenomegaly Psychiatric: Orientation: alert and oriented x 3 Results & Data Vital Signs (Past 12 Hours) Vital Signs Temp Pulse Pulse Resp BP BP Pulse Ox 10/07/22 07:28 36.6 C 93 H 20 131/53 L 93 10/07/22 03:52 96 H 10/07/22 03:50 10/07/22 03:50 36.7 C 92 H 18 105/51 L 95 10/07/22 02:00 102 H 10/07/22 02:07 103 H 20 121/59 L 94 10/07/22 01:00 102 H 17 107/60 93 10/07/22 00:00 96 H 15 110/55 L 94 10/06/22 23:30 100 H 18 118/57 L 96 10/06/22 23:00 91 H 19 113/58 L 95 O2 Del Method 10/07/22 07:28 Room Air 10/07/22 03:52 10/07/22 03:50 Room Air 10/07/22 03:50 Room Air 10/07/22 02:00 10/07/22 02:07 Room Air 10/07/22 01:00 Room Air 10/07/22 00:00 Room Air 10/06/22 23:30 Room Air 10/06/22 23:00 Room Air PG Care Time/CCT Total # of Minutes Spent Total Time Spent with Patient: Total time spent is greater than 50% in coordination of care (as documented) at patient's floor/unit and/or counseling patient: Coding Level of Care Code 58532 INT INP/OBS CARE 3MIN Diagnoses GI bleed K92.2
--- NOTE | 2022-10-07 11:59 | Electrocardiogram Report ---
Test Reason : Blood Pressure : / mmHG Vent. Rate : 102 BPM Atrial Rate : 102 BPM P-R Int : 160 ms QRS Dur : 076 ms QT Int : 352 ms P-R-T Axes : 086 068 079 degrees QTc Int : 458 ms Sinus tachycardia with occasional Premature ventricular complexes and PACs Nonspecific T wave abnormality Abnormal ECG When compared with ECG of 13-SEP-2021 15:46, Premature ventricular complexes are now Present Nonspecific T wave abnormality now evident in Inferior leads Confirmed by Joshua Partida ([id number]) on 10/07/2022 11:58:56 AM Referred By: REFERRED SELF Confirmed By:Vance Partida
[2022-10-07 12:52] LABS: Hematocrit (blood only) 29.2 % (37.0-47.0); Hemoglobin 9.6 g/dl (12.0-16.0)
[2022-10-07] MEDS: PANTOprazole 40 MG TAB PO SCH ×2 (13:03→20:38)
--- NOTE | 2022-10-07 13:30 | Hospitalist Progress Note ---
Date of Service October 07, 2022 Assessment & Plan (1) Lower GI bleed: Plan: Appears to be due to proctitis. GI consultation appreciated. No endoscopy indicated for now. Serial labs ordered. Supportive care. (2) Enteritis: Plan: GI consultation appreciated. Labs ordered. (3) Thrombocytosis: Plan: Iron deficiency could have resulted in elevated platelet count. Iron level pending (4) Hypokalemia: Plan: Replacement underway. Serial labs Plan Discharge to home once stable Admission and Anticipated Discharge Date Admission Date: October 07, 2022 Subjective Alert and oriented. No complaints. GI consultation noted. No colonoscopy recommended at this time. Thrombocytosis noted. Iron levels are pending. She is now on a clear liquid diet. IV fluids have been tapered down. Potassium replacement underway. Toprol has been restarted. Continue Zosyn for now. Review of Systems Review of Systems: Constitutional-no fever or chills ENT-no blurred vision, no double vision, no epistaxis, no sore throat Respiratory-no cough, no wheezing, no shortness of breath Cardiac-no palpitations, no chest pain, no syncope GI-no nausea, vomiting. She does describe black loose stools followed by blood- tinged diarrhea. She does have hemorrhoids and has some rectal discomfort -no urinary retention, no urinary incontinence, no dysuria, no hematuria Musculoskeletal-no joint pain, no muscle tenderness Skin-no bruising, no rashes, no pruritus Neuro-no isolated weakness, no paresthesia, no weakness Psych-no depression, no anxiety Physical Exam Physical Exam: General-alert and oriented x3, no fevers, no chills HEENT-head atraumatic and normocephalic, pupils equal and reactive to light, extraocular muscles intact Neck-no lymphadenopathy or thyromegaly, trachea midline Chest-clear to auscultation percussion. No rales wheezing or rhonchi Cardiac-regular rate and rhythm, normal S1 and S2 Abdomen-normal bowel sounds, nontender, no hepatosplenomegaly Extremities-no cyanosis, clubbing, or edema Neuro-cranial nerves II through XII intact, motor and sensory function within normal limits, strength symmetrical , no focal deficits Psych-normal affect, normal mood Results & Data Results & Data Vital Signs (Past 12 Hours) Vital Signs Temp Pulse Pulse Resp BP BP Pulse Ox 10/07/22 11:21 36.8 C 84 20 104/61 96 10/07/22 07:28 36.6 C 93 H 20 131/53 L 93 10/07/22 03:52 96 H 10/07/22 03:50 10/07/22 03:50 36.7 C 92 H 18 105/51 L 95 10/07/22 02:00 102 H 10/07/22 02:07 103 H 20 121/59 L 94 O2 Del Method 10/07/22 11:21 Room Air 10/07/22 07:28 Room Air 10/07/22 03:52 10/07/22 03:50 Room Air 10/07/22 03:50 Room Air 10/07/22 02:00 10/07/22 02:07 Room Air Laboratory Results 10/07/22 12:31 10/07/22 05:52 PG Care Time/CCT Total # of Minutes Spent Total Time Spent with Patient: Total time spent is greater than 50% in coordination of care (as documented) at patient's floor/unit and/or counseling patient: Coding Level of Care Code 35174 SUB INP/OBS CARE 3/50MIN Diagnoses Lower GI bleed K92.2 Enteritis K52.9 Thrombocytosis D75.839 Hypokalemia E87.6
[2022-10-07 20:37] LABS: Hematocrit (blood only) 29.2 % (37.0-47.0); Hemoglobin 9.5 g/dl (12.0-16.0)
--- NOTE | 2022-10-07 20:51 | Billing Data ---
Date of Service October 07, 2022 Coding Level of Care Code 08296 INT INP/OBS CARE
[2022-10-08] MEDS: D5NSS + 20MEQ KCL 20 MEQ/1,000 ML BAG IV SCH (00:08)
[2022-10-08] MEDS: PIPERACILLIN/TAZOBACTAM 4.5 GM in DEXTROSE 5% 100 ML IV SCH ×3 (00:11→17:01)
[2022-10-08 07:17] LABS: Basophils # (auto) 0.21 K/uL (0-0.2); Basophils % (auto) 1.8 %; Eosinophils # (auto) 0.66 K/uL (0-0.50); Eosinophils % (auto) 5.7 %; Hematocrit (blood only) 28.2 % (37.0-47.0); Immature Granulocytes # (auto) 0.04 K/uL (0.01-0.20); Immature Granulocytes % (auto) 0.3 %; Lymphocytes # (auto) 1.37 K/uL (1.2-3.4); Lymphocytes % (auto) 11.8 %; Mean Corpuscular Hemoglobin 26.2 pg (25.0-34.0); Mean Corpuscular Hgb Conc 31.9 g/dL (32.0-36.0); Mean Platelet Volume 9.5 fL (9.4-12.4); Monocytes % (auto) 5.2 %; Neutrophils # (auto) 8.76 K/uL (1.40-6.50); Neutrophils % (auto) 75.2 %; Platelet Count 907 K/uL (130-400); RDW Coefficient of Variation 16.2 % (11.5-14.5); RDW Standard Deviation 48.5 fL (36.4-46.3); Red Blood Count 3.44 M/uL (4.20-5.40); White Blood Count 11.64 K/ul (4.8-10.8)
[2022-10-08 07:35] LABS: BUN Creatinine Ratio 21.2 (10-20); Calcium 8.5 mg/dl (8.6-10.3); Creatinine Clr Calc Pharmacy 48.4 ml/min; Est GFR (African American) 73.4 ml/min; Est GFR (Non-African American) 63.4 ml/min; Potassium 3.7 mmol/L (3.5-5.1)
[2022-10-08] MEDS: METOPROLOL SUCC 25MG EXT REL TAB PO SCH (08:42)
[2022-10-08] MEDS: PANTOprazole 40 MG TAB PO SCH ×2 (08:43→20:47)
--- NOTE | 2022-10-08 09:37 | Gastroenterology Progress Note ---
Date of Service October 08, 2022 Assessment & Plan (1) Lower GI bleed: Plan: No further bleeding at this time. -Continue to monitor H/H -See #2 (2) Acute proctitis: Plan: Unclear if stercoral or infectious. -Await stool studies. -Advance diet as tolerated. -When returning home, would advise a good bowel regimen with Miralax 1-2 times daily, Colace 100 mg BID, & Senna prn. -Consider outpatient colonoscopy if agreeable, however patient is unsure about proceeding with this. Plan Addendum: This afternoon was notified that patient was to be discharged but then developed lian stools. Discussed with Dr. Yanes who advised NM GI bleeding scan be obtained. Admission and Anticipated Discharge Date Admission Date: October 07, 2022 Supervising Physician Co-Signing Physician Notes I saw the patient and agree with the findings as documented by Nancy Velazco, PAC noted to have lian stools this afternoon, recommend NM bleeding scan at this time to further evaluate. Subjective Patient is an 81 yo female hospitalized with rectal bleeding, concern for infectious process & CT findings concerning for proctitis. Patient has not been able to complete the stool studies ordered. No further bleeding documented. H/H 11/27.2. WBC count improving. She denies new symptoms. Review of Systems Constitutional: no fever and no chills Gastrointestinal: no blood in stools Physical Exam Constitutional: well developed Respiratory: normal respiratory effort Gastrointestinal (Abdomen): normal bowel sounds, soft, nontender, no hepatosplenomegaly Results & Data Results & Data Vital Signs (Past 12 Hours) Vital Signs Temp Pulse Pulse Resp BP BP Pulse Ox 10/08/22 07:38 37.1 C 92 H 18 127/73 92 10/08/22 03:31 37 C 93 H 18 108/61 93 10/07/22 22:15 96 H 10/07/22 23:37 37.1 C 100 H 20 121/67 95 O2 Del Method 10/08/22 07:38 Room Air 10/08/22 03:31 Room Air 10/07/22 22:15 10/07/22 23:37 Room Air PG Care Time/CCT Total # of Minutes Spent Total Time Spent with Patient: Total time spent is greater than 50% in coordination of care (as documented) at patient's floor/unit and/or counseling patient: Coding Level of Care Code 29071 SUB INP/OBS CARE 350MIN Diagnoses Lower GI bleed K92.2 Acute proctitis K62.89
--- NOTE | 2022-10-08 12:00 | Discharge Summary ---
Date of Service October 08, 2022 Admission HPI Per Admitting Provider 81 yo female with PMHx of HTN, HLD, CAD, migraines, IBS, and osteoporosis presents with bloody diarrhea. Patient states she has been constipated the past few days then around 6pm earlier today she sat on the toilet and had explosive diarrhea. Diarrhea initially was brown but turned into black stool with bright red blood in toilet bowl. She had >10 diarrheal stools. Associated nausea, abd bloating, generalized weakness, and vomit x1. Does also endorse a dry cough that started yesterday morning. Denies headache, chest pain, congestion, sore throat, sob, abd pain, hematemesis, dysuria, hematuria. No recent travel. Filters her water at home. No prior history of GI bleed. Principal Diagnosis Lower GI bleed, suspected proctitis, acute blood loss anemia, hypokalemia Discharge Exam General-alert and oriented x3, no fevers, no chills HEENT-head atraumatic and normocephalic, pupils equal and reactive to light, extraocular muscles intact Neck-no lymphadenopathy or thyromegaly, trachea midline Chest-clear to auscultation percussion. No rales wheezing or rhonchi Cardiac-regular rate and rhythm, normal S1 and S2 Abdomen-normal bowel sounds, nontender, no hepatosplenomegaly Extremities-no cyanosis, clubbing, or edema Neuro-cranial nerves II through XII intact, motor and sensory function within normal limits, strength symmetrical , no focal deficits Psych-normal affect, normal mood Discharge Data Allergies Allergy/AdvReac Type Severity Reaction Status Date / Time Iodinated Contrast Media Allergy Intermediate "red dye Verified 10/06/22 22:24 injection" for scans - Hives Consultations 10/07/22 01:06 ED Decision to Admit Stat 10/07/22 02:30 Consult Gastroenterology Routine Ordered Studies 10/06/22 22:54 CT abd pelvis wo con Stat Hospital Course (1) Bloody diarrhea: Due to suspected proctitis. Treated with intravenous antibiotics while hospitalized. She will be discharged home on Augmentin. White blood cell count is trending downward. This has improved considerably. Gastroenterology consultation appreciated. Colonoscopy at a later date. (2) Acute blood loss anemia: Mild. No transfusion needed (3) Heart disease: Stable. Continue current medical (4) Hyperlipidemia: Stable. Continue current medical management (5) Migraine headache: Stable. Continue current medical (6) Osteoporosis: Stable. Continue current medical (7) Benign essential hypertension: Stable. Continue current medical management Plan Home today, October 08, on Augmentin for 1 more week Total Time Total Time Spent Total Time Spent (In Minutes): 45-minute Discharge Plan Discharge Items Patient Disposition: Home - Self-Care Reason For Visit: GI BLEED Discharge Diagnosis: Suspected acute proctitis, acute blood loss anemia, lower GI bleeding, hypokalemia Activity: Resume your previous activity Non-emergency contact: Primary Care Provider Call non-emergency contact if: your symptoms worsen Follow-up/Referrals: Seun Hillman, [Primary Care Provider] - Diet: Regular and Heart Healthy Addtl Attending Provider Instructions: Take Augmentin for 1 more week Pending Studies at Discharge: No Stand-Alone Forms: My [employer] Skin Care, Smoking Cessation Medications and DC Order Prescriptions: New amoxicillin-pot clavulanate 875-125 mg tablet 1 tab PO BID Qty: 14 0RF Continued Systane Complete 0.6 % drops 1 drp OP DAILY Qty: 20 1RF tcxhrznsou-gqyxsruntgkzf-pnmk 50-325-40 mg tablet 1 tab PO Q6H PRN (Reason: Complex tension headache) Qty: 120 0RF aspirin 81 mg tablet,delayed release (DR/EC) 81 mg PO QPM Qty: 90 1RF atorvastatin 40 mg tablet 40 mg PO Q OTHER DAY Rx Instructions: TAKES QPM. amlodipine 5 mg tablet 5 mg PO QAM Rx Instructions: TAKE 1 TABLET EVERY MORNING metoprolol succinate 25 mg tablet extended release 24 hr 12.5 mg PO QAM Rx Instructions: TAKE HALF TABLET BY MOUTH IN THE MORNING ibandronate 150 mg tablet 150 mg PO MONTHLY Rx Instructions: USUALLY AROUND THE OF THE MONTH. valsartan-hydrochlorothiazide 320-25 mg tablet 1 tab PO DAILY Rx Instructions: TAKE 1 TABLET ONCE DAILY multivitamin Tablet 1 tab PO QAM Discharge Orders: Discharge Order (Routine); Ordered 10/08/22 Ordered By: Grupo Rodriges Admission Data Admit Date/Time: 10/07/22 02:30 Attending Provider: Grupo Rodriges Admit Provider: rAnold Jimenez Primary Care Provider: Seun Hillman Other Providers: Jase Fields ; Radha Downey Coding Level of Care Code 14812 INP/OBS DISCH >30 MIN Diagnoses Bloody diarrhea R19.7 Acute blood loss anemia D62 Heart disease I51.9 Hyperlipidemia E78.5 Migraine headache G43.909 Osteoporosis M81.0 Benign essential hypertension I10
--- NOTE | 2022-10-08 13:48 | Hospitalist Progress Note ---
Date of Service October 08, 2022 Assessment & Plan (1) Bloody diarrhea: Plan: Due to suspected proctitis. Treated with Zosynhospitalized. She will be discharged home on Augmentin. White blood cell count is trending downward. This has improved considerably. Gastroenterology consultation appreciated. Colonoscopy at a later date. (2) Acute blood loss anemia: Plan: Mild. No transfusion needed. Continue serial H&H (3) Heart disease: Plan: Stable. Continue current medical (4) Hyperlipidemia: Plan: Stable. Continue current medical management (5) Migraine headache: Plan: Stable. Continue current medical (6) Osteoporosis: Plan: Stable. Continue current medical (7) Benign essential hypertension: Plan: Stable. Continue current medical management Plan Hopefully home tomorrow, October 09, if hemoglobin remained stable Admission and Anticipated Discharge Date Admission Date: October 07, 2022 Subjective Alert and oriented. She was going to go home but she continues to have intermittent hematochezia. Hemoglobin is 9.0. She is hesitant about going home today. Will continue serial H&H and notify gastroenterology that she continues to have hematochezia. Continue antibiotics for now. Review of Systems Review of Systems: Constitutional-no fever or chills ENT-no blurred vision, no double vision, no epistaxis, no sore throat Respiratory-no cough, no wheezing, no shortness of breath Cardiac-no palpitations, no chest pain, no syncope GI-no nausea, vomiting. Intermittent hematochezia. She does have hemorrhoids and has some rectal discomfort -no urinary retention, no urinary incontinence, no dysuria, no hematuria Musculoskeletal-no joint pain, no muscle tenderness Skin-no bruising, no rashes, no pruritus Neuro-no isolated weakness, no paresthesia, no weakness Psych-no depression, no anxiety Physical Exam Physical Exam: General-alert and oriented x3, no fevers, no chills HEENT-head atraumatic and normocephalic, pupils equal and reactive to light, extraocular muscles intact Neck-no lymphadenopathy or thyromegaly, trachea midline Chest-clear to auscultation percussion. No rales wheezing or rhonchi Cardiac-regular rate and rhythm, normal S1 and S2 Abdomen-normal bowel sounds, nontender, no hepatosplenomegaly Extremities-no cyanosis, clubbing, or edema Neuro-cranial nerves II through XII intact, motor and sensory function within normal limits, strength symmetrical , no focal deficits Psych-normal affect, normal mood Results & Data Results & Data Vital Signs (Past 12 Hours) Vital Signs Temp Pulse Resp BP BP Pulse Ox O2 Del Method 10/08/22 10:34 36.9 C 83 19 132/68 95 Room Air 10/08/22 07:38 37.1 C 92 H 18 127/73 92 Room Air 10/08/22 03:31 37 C 93 H 18 108/61 93 Room Air Laboratory Results 10/08/22 06:50 10/08/22 06:50 PG Care Time/CCT Total # of Minutes Spent Total Time Spent with Patient: Total time spent is greater than 50% in coordination of care (as documented) at patient's floor/unit and/or counseling patient: Coding Level of Care Code 09225 SUB INP/OBS CARE 2/35MIN Diagnoses Bloody diarrhea R19.7 Acute blood loss anemia D62 Heart disease I51.9 Hyperlipidemia E78.5 Migraine headache G43.909 Osteoporosis M81.0 Benign essential hypertension I10
[2022-10-08 16:36] LABS: Adenovirus F 40/41 PCR Not Detected (NotDetected); Astrovirus PCR Not Detected (NotDetected); Campylobacter PCR Not Detected (NotDetected); Cryptosporidium PCR Not Detected (NotDetected); Cyclospora cayetanensis PCR Not Detected (NotDetected); Entamoeba histolytica PCR Not Detected (NotDetected); Enteroaggregative E.coli(EAEC) Not Detected (NotDetected); Enteropathogenic E.coli (EPEC) Not Detected (NotDetected); Enterotoxigenic E.coli (ETEC) Not Detected (NotDetected); Giardia lamblia PCR Not Detected (NotDetected); Norovirus GI/GII PCR Not Detected (NotDetected); Plesiomonas shigelloides PCR Not Detected (NotDetected); Rotavirus A PCR Not Detected (NotDetected); Salmonella PCR Not Detected (NotDetected); Sapovirus PCR Not Detected (NotDetected); Shiga-like Toxin E.coli (STEC) Not Detected (NotDetected); Shigella/Enteroinvasive E.coli Not Detected (NotDetected); Vibrio cholerae PCR Not Detected (NotDetected); Vibrio species PCR Not Detected (NotDetected); Yersinia enterocolitica PCR Not Detected (NotDetected)
--- NOTE | 2022-10-08 17:15 | Nuclear Medicine Report ---
NM GI bleeding CLINICAL HISTORY: GI bleeding TECHNIQUE: Following the intravenous injection of 25.50 mCi of Tc-99m tagged autologous RBCs, planar images of the abdomen were obtained over the course of one hour. COMPARISON: None available at the time of this dictation. FINDINGS: Expected radiopharmaceutical uptake is seen in the liver, spleen and blood pool. No significant pool of radiopharmaceutical activity is identified over the region of the bowel to sug gest GI blood loss. However, if patient re-bleeds within 24 hours, additional follow-up imaging may b e obtained with the current radiopharmaceutical activity. IMPRESSION: No evidence of acute gastrointestinal bleeding. ACT 112: Negative or not required by law. Electronically signed by: Christ Villegas M.D. 10/08/2022 5:14 PM
[2022-10-08 20:38] LABS: Hematocrit (blood only) 29.9 % (37.0-47.0); Hemoglobin 9.5 g/dl (12.0-16.0)
[2022-10-09] MEDS: PIPERACILLIN/TAZOBACTAM 4.5 GM in DEXTROSE 5% 100 ML IV SCH ×3 (00:47→16:05)
[2022-10-09 06:24] LABS: Basophils % (auto) 1.6 %; Eosinophils # (auto) 0.63 K/uL (0-0.50); Eosinophils % (auto) 5.1 %; Hematocrit (blood only) 28.2 % (37.0-47.0); Hemoglobin 9.1 g/dl (12.0-16.0); Immature Granulocytes # (auto) 0.06 K/uL (0.01-0.20); Immature Granulocytes % (auto) 0.5 %; Lymphocytes % (auto) 8.1 %; Mean Corpuscular Hemoglobin 26.8 pg (25.0-34.0); Mean Corpuscular Hgb Conc 32.3 g/dL (32.0-36.0); Mean Corpuscular Volume 82.9 fL (80.0-100.0); Mean Platelet Volume 9.7 fL (9.4-12.4); Monocytes # (auto) 0.62 K/uL (0.11-0.59); Neutrophils % (auto) 79.7 %; Platelet Count 883 K/uL (130-400); RDW Standard Deviation 48.7 fL (36.4-46.3); White Blood Count 12.31 K/ul (4.8-10.8)
[2022-10-09 06:36] LABS: BUN Creatinine Ratio 21.3 (10-20); Calcium 8.6 mg/dl (8.6-10.3); Creatinine Clr Calc Pharmacy 51.3 ml/min; Est GFR (Non-African American) 68.2 ml/min; Potassium 3.5 mmol/L (3.5-5.1)
[2022-10-09] MEDS: METOPROLOL SUCC 25MG EXT REL TAB PO SCH (08:52)
[2022-10-09] MEDS: PANTOprazole 40 MG TAB PO SCH (08:52)
--- NOTE | 2022-10-09 09:41 | History & Physical Bridge Note ---
Date of Service October 09, 2022 History & Physical Bridge Note I have examined the patient, reviewed the History & Physical and in the interval since the performance of the History & Physical I have noted the following changes of clinical significance: no changes noted. Patient is an 81 yo female with GI bleeding. She was to be discharged yesterday but developed rectal bleeding. She had a NM GI bleed scan that was negative for acute bleed. She notes she had continued bleeding overnight that she describes as coffee ground stools and lian stools. Continue Protonix, continue to monitor H/H, and proceed with EGD today to r/o upper GI bleeding. If no findings, then patient will consider proceeding with colonoscopy.
[2022-10-09] MEDS ORDERED: LIDOCAINE 2% 2 ML VIAL/AMP(20MG/ML) INFIL ONE (11:36)
[2022-10-09] MEDS ORDERED: PROPOFOL IV EMULSION 10 MG/ML 20 ML VIAL IV ONE (11:36)
--- NOTE | 2022-10-09 12:01 | Anesthesiology Consultation ---
Date of Service October 09, 2022 Assessment & Plan Consults Requested medical & cardiac Pulmonary History Surgery Operation Date: 10/09/22 16:45 Proposed Procedures p Esophagogastroduodenoscopy Dr. Yanes - Christiano Yanes MD Height/Weight Height: 5 ft 8 in Weight: 61 kg Allergies Allergy/AdvReac Type Severity Reaction Status Date / Time Iodinated Contrast Media Allergy Intermediate "red dye Verified 10/06/22 22:24 injection" for scans - Hives Medications Home Medications Medication Instructions Recorded Confirmed Last Taken aspirin 81 mg tablet,delayed 81 mg PO QPM #90 tabs 04/05/21 10/06/22 10/05/22 release multivitamin 1 tab PO QAM 08/31/21 10/06/22 10/06/22 propylene glycol 0.6 % eye drops 1 drp ophthalmic (eye) DAILY #20 mL 03/20/22 10/06/22 10/06/22 (Systane Complete) amlodipine 5 mg tablet 5 mg PO QAM 10/06/22 10/06/22 10/06/22 atorvastatin 40 mg tablet 40 mg PO Q OTHER DAY 10/06/22 10/06/22 10/05/22 ibandronate 150 mg tablet 150 mg PO MONTHLY 10/06/22 10/06/22 09/18/22 metoprolol succinate 25 mg 12.5 mg PO QAM 10/06/22 10/06/22 10/06/22 tablet,extended release 24 hr valsartan 320 1 tab PO DAILY 10/06/22 10/06/22 10/06/22 mg-hydrochlorothiazide 25 mg tablet fxeigepveu-mvsjnelyknfac-zqiizsph 1 tab PO Q6H PRN Complex tension 10/07/22 Unknown 50 mg-325 mg-40 mg tablet headache #120 tabs amoxicillin 875 mg-potassium 1 tab PO BID #14 tabs 10/08/22 Unknown clavulanate 125 mg tablet Active Medications Generic Name Dose Route Start Last Admin Trade Name Freq PRN Reason Stop Dose Admin Piperacillin Sod/Tazobactam 120 mls @ 30 mls/hr 10/07/22 08:00 10/09/22 11:08 Sod 4.5 gm/ Dextrose IV 10/17/22 07:59 0 mls/hr Q8H JD Infusion Protocol Metoprolol Succinate 12.5 mg 10/07/22 09:00 10/09/22 08:52 Metoprolol Succ 25mg Ext Rel Tab PO 11/06/22 08:59 12.5 mg QAM JD Administration NPO Date Last Intake of Fluids: 10/09/22 Time Last Intake of Fluids: 08:00 Last Intake of Fluids Comment: jello Date Last Intake of Solids: 10/08/22 Time Last Intake of Solids: 12:00 Past Medical History Medical History Degenerative disc disease Diverticular disease Fibromyalgia Hyperlipidemia Hypertension IBS (irritable bowel syndrome) Migraines Osteoarthritis Urinary incontinence Past Family History Family History Uncle Colorectal cancer Sister Stroke Other Breast cancer No family history of adverse response to anesthesia Denies family history of Ovarian cancer Prostate cancer Myocardial infarction Past Surgical History Surgical History History of ankle surgery x 2 - Rt History of appendectomy History of bladder surgery x 4 History of bowel resection History of breast biopsy History of cardiac cath 1989 & 1999 - no stents History of cataract surgery left cataract History of cervical spinal surgery limited ROM side to side History of colonoscopy History of hysterectomy JINA History of knee surgery Lt x 2 History of shoulder surgery Lt History of spinal surgery lumbar spine; hardware present History of wisdom tooth extraction Social History Smoking Status: Never smoker Do You Dip or Chew Tobacco: No Hx Alcohol Use: Yes Alcohol type: beer and wine alcohol intake frequency: a few times a month Hx Substance Use: No substance use type: does not use Physical Exam Vital Signs Last Vital Signs Temp 36.8 C 10/09/22 11:25 Pulse 91 H 10/09/22 11:25 Resp 16 10/09/22 11:25 BP 164/75 H 10/09/22 11:25 Pulse Ox 94 10/09/22 11:25 O2 Del Method Room Air 10/09/22 11:25 Testing Laboratory Results 10/09/22 05:57 10/09/22 05:57 PT 12.8 Seconds (9.0-12.0) H 10/07/22 05:52 INR 1.2 (0.9-1.1) H 10/07/22 05:52 APTT 28.2 Seconds (21.0-31.0) 10/07/22 05:52 Blood Type O Positive 10/06/22 21:52 Antibody Screen NEGATIVE 10/06/22 21:52
[2022-10-09] MEDS ORDERED: PHENYLEPHRINE 100MCG/ML 5ML SYR ONE (12:23)
--- NOTE | 2022-10-09 12:55 | GI REPORT ---
Patient Name: Yael Ames Procedure Date: 10/09/2022 11:51 AM Date of : 1940 Admit Type: Inpatient Age: 81 Gender: Female Attending MD: Christiano Yanes MD, Procedure: Upper GI endoscopy Providers: Christiano Yanes MD Referring MD: Referred Self Indications: Hematochezia Medicines: Monitored Anesthesia Care Complications: No immediate complications. Estimated blood loss: None. Estimated Blood Loss: Estimated blood loss: none. Procedure: Pre-Anesthesia Assessment: - Prior Anticoagulants: The patient has taken no anticoagulant or antiplatelet agents. - ASA Grade Assessment: III - A patient with severe systemic disease. After obtaining informed consent, the endoscope was passed under direct vision. Throughout the procedure, the patient's blood pressure, pulse, and oxygen saturations were monitored continuously. The Endoscope was introduced through the mouth, and advanced to the second part of duodenum. The upper GI endoscopy was accomplished without difficulty. The patient tolerated the procedure well. Findings: The examined esophagus was normal. A medium-sized, submucosal, non-circumferential mass with no bleeding and no stigmata of recent bleeding was found in the stomach in the fundus. pillow test was negative, the mass was mobile/movable. The duodenal bulb and second portion of the duodenum were normal. no evidence of blood throughout entire exam. Impression: - Normal esophagus. - Gastric tumor. - Normal duodenal bulb and second portion of the duodenum. - No specimens collected. Recommendation: - [facility]. - Clear liquid diet today. --trend H/H, transfuse prn --will need outpatient EUS to evaluate submucosal mass in his stomach Christiano Yanes MD 10/09/2022 12:55:22 PM This report has been signed electronically. Note Initiated On: 10/09/2022 11:51 AM Number of Addenda: 0 I attest to the content of the Intraoperative Record and orders documented therein, exceptions below {[id number]}
--- NOTE | 2022-10-09 14:45 | Anesthesiology Progress Note ---
Date of Service October 09, 2022 Anesthesia Post Procedure Vital Signs Vital Signs: Temp Pulse Pulse Pulse Resp BP BP 10/09/22 13:20 37.0 C 82 20 133/63 10/09/22 13:06 85 16 138/61 10/09/22 12:56 89 16 139/68 10/09/22 12:40 75 16 130/50 L 10/09/22 11:23 37.1 C 96 H 16 155/65 H 10/09/22 11:25 36.8 C 91 H 16 164/75 H 10/09/22 07:47 36.6 C 96 H 16 148/63 H 10/09/22 07:34 101 H 10/09/22 04:00 36.7 C 94 H 18 128/62 10/08/22 23:25 36.8 C 92 H 18 118/60 10/08/22 22:36 73 10/08/22 19:00 36.6 C 97 H 18 131/69 10/08/22 16:53 36.5 C 96 H 20 148/73 H Pulse Ox O2 Del Method 10/09/22 13:20 99 Room Air 10/09/22 13:06 97 Room Air 10/09/22 12:56 95 Room Air 10/09/22 12:40 99 Room Air 10/09/22 11:23 16 L Room Air 10/09/22 11:25 94 Room Air 10/09/22 07:47 95 Room Air 10/09/22 07:34 10/09/22 04:00 95 Room Air 10/08/22 23:25 94 Room Air 10/08/22 22:36 10/08/22 19:00 96 Room Air 10/08/22 16:53 93 Room Air Transfer of Care Handoff Completed per policy Notes Mental Status: alert / awake / arousable and participated in evaluation Nausea / Vomiting: adequately controlled Pain: adequately controlled Airway Patency, RR, SpO2: stable & adequate BP & HR: stable & adequate Hydration State: stable & adequate Anesthetic Complications: no major complications apparent and Pt Satisfied with anesthetic care
--- NOTE | 2022-10-09 15:02 | Hospitalist Progress Note ---
Date of Service October 09, 2022 Assessment & Plan (1) Bloody diarrhea: Plan: Due to suspected proctitis. Treated with Zosyn while hospitalized. She will be discharged home on Augmentin. White blood cell count is trending downward. This has improved considerably. Gastroenterology consultation appreciated. Colonoscopy at a later date. (2) Acute blood loss anemia: Plan: Mild. No transfusion needed. Continue serial H&H (3) Gastric mass: Plan: Small submucosal nonbleeding gastric mass seen on endoscopy today, October 09. This will need further outpatient endoscopic ultrasound evaluation (4) Heart disease: Plan: Stable. Continue current medical (5) Hyperlipidemia: Plan: Stable. Continue current medical management (6) Migraine headache: Plan: Stable. Continue current medical (7) Osteoporosis: Plan: Stable. Continue current medical (8) Benign essential hypertension: Plan: Stable. Continue current medical management Plan Hopefully home tomorrow, October 10, if hemoglobin remained stable Admission and Anticipated Discharge Date Admission Date: October 07, 2022 Subjective Alert and oriented. She underwent EGD earlier today with no signs of active bleeding. There is a small submucosal gastric mass that will need outpatient endoscopic ultrasound evaluation at a later date. No signs of active bleeding. Hemoglobin is stable. As far as I know, no colonoscopy is planned this admission. Hopefully home tomorrow, October 10, if hemoglobin remained stable. Review of Systems Review of Systems: Constitutional-no fever or chills ENT-no blurred vision, no double vision, no epistaxis, no sore throat Respiratory-no cough, no wheezing, no shortness of breath Cardiac-no palpitations, no chest pain, no syncope GI-no nausea, vomiting. Intermittent hematochezia. She does have hemorrhoids and has some rectal discomfort -no urinary retention, no urinary incontinence, no dysuria, no hematuria Musculoskeletal-no joint pain, no muscle tenderness Skin-no bruising, no rashes, no pruritus Neuro-no isolated weakness, no paresthesia, no weakness Psych-no depression, no anxiety Physical Exam Physical Exam: General-alert and oriented x3, no fevers, no chills HEENT-head atraumatic and normocephalic, pupils equal and reactive to light, extraocular muscles intact Neck-no lymphadenopathy or thyromegaly, trachea midline Chest-clear to auscultation percussion. No rales wheezing or rhonchi Cardiac-regular rate and rhythm, normal S1 and S2 Abdomen-normal bowel sounds, nontender, no hepatosplenomegaly Extremities-no cyanosis, clubbing, or edema Neuro-cranial nerves II through XII intact, motor and sensory function within normal limits, strength symmetrical , no focal deficits Psych-normal affect, normal mood Results & Data Results & Data Vital Signs (Past 12 Hours) Vital Signs Temp Pulse Pulse Pulse Resp BP Pulse Ox 10/09/22 13:20 37.0 C 82 20 133/63 99 10/09/22 13:06 85 16 138/61 97 10/09/22 12:56 89 16 139/68 95 10/09/22 12:40 75 16 130/50 L 99 10/09/22 11:23 37.1 C 96 H 16 155/65 H 16 L 10/09/22 11:25 36.8 C 91 H 16 164/75 H 94 10/09/22 07:47 36.6 C 96 H 16 148/63 H 95 10/09/22 07:34 101 H 10/09/22 04:00 36.7 C 94 H 18 128/62 95 O2 Del Method 10/09/22 13:20 Room Air 10/09/22 13:06 Room Air 10/09/22 12:56 Room Air 10/09/22 12:40 Room Air 10/09/22 11:23 Room Air 10/09/22 11:25 Room Air 10/09/22 07:47 Room Air 10/09/22 07:34 10/09/22 04:00 Room Air Laboratory Results 10/09/22 05:57 10/09/22 05:57 PG Care Time/CCT Total # of Minutes Spent Total Time Spent with Patient: Total time spent is greater than 50% in coordination of care (as documented) at patient's floor/unit and/or counseling patient: Coding Level of Care Code 09710 SUB INP/OBS CARE 2/35MIN Diagnoses Bloody diarrhea R19.7 Acute blood loss anemia D62 Gastric mass K31.89 Heart disease I51.9 Hyperlipidemia E78.5 Migraine headache G43.909 Osteoporosis M81.0 Benign essential hypertension I10
[2022-10-09] MEDS ORDERED: PANTOprazole 40 MG in SYRINGE 0 ML IV SCH (21:00)
[2022-10-09 21:47] LABS: Hematocrit (blood only) 28.2 % (37.0-47.0)
[2022-10-10] MEDS: PIPERACILLIN/TAZOBACTAM 4.5 GM in DEXTROSE 5% 100 ML IV SCH ×2 (00:45→08:21)
[2022-10-10 06:39] LABS: Basophils # (auto) 0.18 K/uL (0-0.2); Basophils % (auto) 1.7 %; Eosinophils # (auto) 0.53 K/uL (0-0.50); Eosinophils % (auto) 5.1 %; Hematocrit (blood only) 27.9 % (37.0-47.0); Hemoglobin 8.7 g/dl (12.0-16.0); Immature Granulocytes # (auto) 0.03 K/uL (0.01-0.20); Immature Granulocytes % (auto) 0.3 %; Lymphocytes # (auto) 1.21 K/uL (1.2-3.4); Lymphocytes % (auto) 11.6 %; Mean Corpuscular Hgb Conc 31.2 g/dL (32.0-36.0); Mean Corpuscular Volume 83.5 fL (80.0-100.0); Mean Platelet Volume 9.9 fL (9.4-12.4); Monocytes # (auto) 0.52 K/uL (0.11-0.59); Neutrophils # (auto) 7.93 K/uL (1.40-6.50); Neutrophils % (auto) 76.3 %; Platelet Count 935 K/uL (130-400); RDW Coefficient of Variation 15.9 % (11.5-14.5); RDW Standard Deviation 48.3 fL (36.4-46.3); Red Blood Count 3.34 M/uL (4.20-5.40)
[2022-10-10 07:00] LABS: Calcium 8.8 mg/dl (8.6-10.3); Creatinine Clr Calc Pharmacy 41.1 ml/min; Est GFR (African American) 60.3 ml/min; Est GFR (Non-African American) 52.1 ml/min; Potassium 3.7 mmol/L (3.5-5.1)
[2022-10-10] MEDS: METOPROLOL SUCC 25MG EXT REL TAB PO SCH (08:17)
--- NOTE | 2022-10-10 11:37 | Communication Note ---
Date of Service: October 10, 2022 Patient is an 81 yo female with GI bleeding. She underwent an EGD on 10/09/22 that indicated a submucosal gastric nodule. She did not have further GI bleeding overnight. H/H 8.7/27.9. -Continue PPI therapy at present. -Discussed with Dr. Yanes who advised on plan. She can have an outpatient colonoscopy if bleeding resolves. If patient were to re-bleed inpatient, could consider colonoscopy. -Continue to monitor H/H.
--- NOTE | 2022-10-10 11:55 | Hospitalist Progress Note ---
Date of Service October 10, 2022 Assessment & Plan (1) Bloody diarrhea: Plan: Due to suspected proctitis. Treated with Zosyn while hospitalized. She will be discharged home on Augmentin. White blood cell count is trending downward. This has improved considerably. Gastroenterology consultation appreciated. Colonoscopy at a later date. EGD was completed yesterday, October 09, with no evidence of active bleeding (2) Acute blood loss anemia: Plan: Mild. No transfusion needed. Continue serial H&H (3) Gastric mass: Plan: Small submucosal nonbleeding gastric mass seen on endoscopy completed on October 09. This will need further outpatient endoscopic ultrasound evaluation (4) Heart disease: Plan: Stable. Continue current medical (5) Hyperlipidemia: Plan: Stable. Continue current medical management (6) Migraine headache: Plan: Stable. Continue current medical (7) Osteoporosis: Plan: Stable. Continue current medical (8) Benign essential hypertension: Plan: Stable. Continue current medical management Plan Home today, October 10 Admission and Anticipated Discharge Date Admission Date: October 07, 2022 Subjective Alert and oriented. No new problems. EGD was completed yesterday, October 09 and was negative for any active bleeding. She does have a small submucosal gastric mass that will need outpatient endoscopic ultrasound. The patient has been informed of this. She has been treated with intravenous Zosyn while hospitalized and will continue with Augmentin at discharge. Hemoglobin is stable although mildly low. Review of Systems Review of Systems: Constitutional-no fever or chills ENT-no blurred vision, no double vision, no epistaxis, no sore throat Respiratory-no cough, no wheezing, no shortness of breath Cardiac-no palpitations, no chest pain, no syncope GI-no nausea, vomiting. Intermittent hematochezia. She does have hemorrhoids and has some rectal discomfort -no urinary retention, no urinary incontinence, no dysuria, no hematuria Musculoskeletal-no joint pain, no muscle tenderness Skin-no bruising, no rashes, no pruritus Neuro-no isolated weakness, no paresthesia, no weakness Psych-no depression, no anxiety Physical Exam Physical Exam: General-alert and oriented x3, no fevers, no chills HEENT-head atraumatic and normocephalic, pupils equal and reactive to light, extraocular muscles intact Neck-no lymphadenopathy or thyromegaly, trachea midline Chest-clear to auscultation percussion. No rales wheezing or rhonchi Cardiac-regular rate and rhythm, normal S1 and S2 Abdomen-normal bowel sounds, nontender, no hepatosplenomegaly Extremities-no cyanosis, clubbing, or edema Neuro-cranial nerves II through XII intact, motor and sensory function within normal limits, strength symmetrical , no focal deficits Psych-normal affect, normal mood Results & Data Results & Data Vital Signs (Past 12 Hours) Vital Signs Temp Pulse Pulse Resp BP BP Pulse Ox 10/10/22 10:41 36.9 C 80 20 131/64 94 10/10/22 07:00 84 10/10/22 07:36 36.5 C 104 H 21 160/74 H 96 10/10/22 04:14 36.5 C 90 19 122/71 98 10/10/22 00:35 96 H O2 Del Method 10/10/22 10:41 Room Air 10/10/22 07:00 10/10/22 07:36 Room Air 10/10/22 04:14 Room Air 10/10/22 00:35 Laboratory Results 10/10/22 06:12 10/10/22 06:12 PG Care Time/CCT Total # of Minutes Spent Total Time Spent with Patient: Total time spent is greater than 50% in coordination of care (as documented) at patient's floor/unit and/or counseling patient: Coding Level of Care Code 82606 SUB INP/OBS CARE 2/35MIN Diagnoses Bloody diarrhea R19.7 Acute blood loss anemia D62 Gastric mass K31.89 Heart disease I51.9 Hyperlipidemia E78.5 Migraine headache G43.909 Osteoporosis M81.0 Benign essential hypertension I10
== END 2022-10-10 14:00 | disposition home or self-care (01) | DRG 394 ==
LOC: ED 21:01 → SUATTDRO 10-07 02:30 → 2S 10-07 02:30

== ENCOUNTER 2024-11-25 08:53 | Inpatient (IN) ==
--- NOTE | 2024-11-25 09:27 | Emergency Department Note ---
ED Provider Note History of Present Illness Chief Complaint: Fall Stated Complaint: FALL THIS AM, R SIDE PAIN Time Seen by Provider: 11/25/24 09:11 Source: patient Mode of arrival: wheelchair Limitations: no limitations Patient is an 84-year-old female who presents to the emergency department with complaints of a ground-level fall at home. Patient states that prior to arrival she fell at home and slid just under her dining room table. Patient reports that she did not get lightheaded or dizzy prior to the fall and believes that she tripped on a rug or did not lift her foot high enough. Patient states that she did hit her head but denies any loss of consciousness. Patient takes a baby aspirin daily but denies any other blood thinners. Patient notes pain in her bilateral hands, right ribs and right hip. Patient denies any head pain. Home Medications Medication Instructions Recorded Confirmed Type aspirin 81 mg tablet,delayed 81 mg PO QPM #90 tabs 04/05/21 11/25/24 Rx release multivitamin 1 tab PO QAM 08/31/21 11/25/24 History propylene glycol 0.6 % eye drops 1 drp ophthalmic (eye) DAILY #20 mL 03/20/22 11/25/24 Rx (Systane Complete) loperamide 2 mg capsule (Imodium 2 mg PO Q6H PRN Constipation 10/13/22 11/25/24 History A-D) hydroxyurea 500 mg capsule 500 mg PO QAM 12/10/22 11/25/24 History amlodipine 5 mg tablet 5 mg PO QAM #90 tabs 04/20/24 11/25/24 Rx atorvastatin 40 mg tablet 40 mg PO Q OTHER DAY 90 days #45 04/20/24 11/25/24 Rx tabs valsartan 320 1 tab PO QAM #90 tabs 04/20/24 11/25/24 Rx mg-hydrochlorothiazide 25 mg tablet ibandronate 150 mg tablet 150 mg PO Q30D #3 tabs 06/27/24 11/25/24 Rx metoprolol succinate 25 mg 25 mg PO DAILY #90 tabs 06/27/24 11/25/24 Rx tablet,extended release 24 hr hvwyctkfmr-andbsuvirclvl-wwaxagpb 1 tab PO Q6H PRN Complex tension 10/27/24 11/25/24 Rx 50 mg-325 mg-40 mg tablet headache #120 tabs ferrous sulfate 27 mg iron tablet 27 mg PO DAILY 11/25/24 11/25/24 History Allergies Allergy/AdvReac Type Severity Reaction Status Date / Time Iodinated Contrast Media Allergy Intermediate "red dye Verified 11/08/24 11:08 injection" for scans - Hives nickel Allergy Unknown Rash Verified 11/08/24 11:08 Past Med/Surg History Problem List (Updated 11/25/24 @ 21:11 by Antoine Downey MD) Arthritis of right hip Fracture of right fifth rib (Acute) Osteoporosis Metacarpal bone fracture (Acute) Fall Arthralgia of multiple sites (Acute) Breast asymmetry (Acute) Cataract (Acute) Fibromyalgia (Acute) Weight loss (Acute) Diverticular disease Chronic tension headache Constipation Acute proctitis (Acute) Lower GI bleed Thrombocytosis Hypokalemia Acute blood loss anemia Gastric mass Diarrhea Abnormal EKG Pre-operative cardiovascular exam, new EKG abnormalities c/w ischemia Benign essential hypertension recently seen in the ER at [facility] for poss. A-fib, per cardiology visit note, pt does not have atrial fibrillation. History of diverticulitis Medical History History of anemia History of COVID-19 11/2021- head and sinus congestion; resolved Hx of basal cell carcinoma IBS (irritable bowel syndrome) Degenerative disc disease Osteoarthritis Urinary incontinence Fibromyalgia Migraines Hypertension Migraine headache Hyperlipidemia Heart disease Surgical History History of esophagogastroduodenoscopy (EGD) Hx of basal cell carcinoma excision Hx of right cataract extraction History of cataract surgery left cataract History of ankle surgery x 2 - Rt History of bowel resection History of cervical spinal surgery limited ROM side to side History of colonoscopy History of cardiac cath 1989 & 1999 - no stents , [facility]; dr. silva, [facility] – [place] History of breast biopsy History of appendectomy History of bladder surgery x 4 History of hysterectomy IJNA History of wisdom tooth extraction History of shoulder surgery Lt History of knee surgery Lt x 2 History of spinal surgery lumbar spine; hardware present Family History Uncle Colorectal cancer Sister Stroke Other Breast cancer No family history of adverse response to anesthesia Denies family history of Ovarian cancer Prostate cancer Myocardial infarction Social History Smoking Status: Never smoker Second Hand Exposure: No; Do You Dip or Chew Tobacco: No; Hx Alcohol Use: No Hx Substance Use: No Preferred Language: Macanese Communication Ability: Effective Visual Impairment: No Limitations Hearing Ability: Normal Metabolic Specialist Required: No Beliefs That Will Affect Care: None marital status: / Current Living Situation: Alone Current Living Situation Comment: family lives across the street current occupational status: retired How many Children do You have: 1 Feels Safe at Home: Yes Safety Concerns: Feels Safe At This Time Childhood Exposure to Second-Hand Smoke: Yes Diet: regular caffeine: Yes during the past year weight has: remained stable Dental Care, Regularly: Yes Physical Activity Frequency: Daily Seatbelt Use: always Sunscreen Use: Yes Assistive Devices: Denture - Upper and Raised Toilet Seat Physical Exam Vital Signs Vital Signs - 24 hr 11/25/24 08:56 11/25/24 10:28 11/25/24 11:38 Temperature 36.9 C Temperature Source Temporal Artery Scan Pulse Rate 82 65 70 Pulse Rate [Apical] Pulse Rhythm [Apical] Pulse Strength [Apical] Respiratory Rate 18 20 Respiratory Effort / Characteristics Non-Labored Spontaneous Respiratory Depth Normal Respiratory Pattern Regular Blood Pressure 175/79 H 201/95 H Blood Pressure [Left Arm] Blood Pressure Mean 111 147 Blood Pressure Mean [Left Arm] Pulse Oximetry 98 98 Oxygen Delivery Method Room Air Sepsis Recent Fever Within 48 Hours No Sepsis New/Unexplained Change in Mental Status N/A Sepsis Action Taken by Nursing No Action Required 11/25/24 12:54 11/25/24 14:53 11/25/24 15:24 Temperature Temperature Source Pulse Rate 78 81 Pulse Rate [Apical] 70 Pulse Rhythm [Apical] Regular Pulse Strength [Apical] Normal Respiratory Rate 20 18 16 Respiratory Effort / Characteristics Non-Labored Spontaneous Respiratory Depth Normal Respiratory Pattern Regular Blood Pressure 150/106 H 146/96 H Blood Pressure [Left Arm] 148/65 H Blood Pressure Mean 128 103 Blood Pressure Mean [Left Arm] 92 Pulse Oximetry 98 96 96 Oxygen Delivery Method Room Air Sepsis Recent Fever Within 48 Hours Sepsis New/Unexplained Change in Mental Status Sepsis Action Taken by Nursing VITAL SIGNS - Vital signs and nursing notes were reviewed. GENERAL -84-year-old female appearing their stated age, who is in no acute distress. Communicates well with provider and answers questions appropriately. Patient's family members at bedside. HEAD - Normocephalic, Atraumatic. No Kendrick's Sign or Raccoon's Eyes. No depressed skull fractures palpable. EYES - PERRL with EOMI bilaterally. Sclera anicteric. Conjunctiva pink and moist with no injection. EARS - No deformities of external structures noted on gross examination bilaterally. NOSE - Midline and without cyanosis. No epistaxis or purulent drainage noted. NECK - Neck with FROM. Supple to palpation. No lymphadenopathy noted. LUNGS - Chest wall symmetric without accessory muscle use, intercostals retractions, or central cyanosis. Normal vesicular breath sounds CTA B/L. No wheezes, rales, or rhonchi appreciated. Patient notes a mild increase in her rib discomfort on the right side with deep inspiration. CARDIAC - RRR with S1/S2. No murmur, rubs, or gallops appreciated. EXTREMITIES - No edema present. +5/5 strength noted in UE/LE bilaterally. NEUROLOGIC -Sensory intact to light touch throughout. PSYCH - A&Ox3 and cooperates fully with examiner. Pt is very pleasant and interacts well with examiner Course Administered Medications Acetaminophen (Acetaminophen 325 Mg Tab) 650 mg PO Q4H PRN PRN Reason: Fever/Pain (Pain 1-7) Stop: 12/25/24 17:00 Last Admin: 11/25/24 19:49 Dose: 650 mg Documented By: alyssa Aspirin (Aspirin 81 Mg Ectab) 81 mg PO QPM JD Stop: 12/25/24 20:59 Last Admin: 11/25/24 20:42 Dose: 81 mg Documented By: JOLLY Discontinued Medications Ibuprofen (Ibuprofen 600 Mg Tab) 600 mg PO NOW STA Stop: 11/25/24 13:04 Last Admin: 11/25/24 13:07 Dose: 600 mg Documented By: TAWANDA Medical Decision Making Differential Diagnosis Fracture, dislocation, muscular strain, sprain, contusion, intracranial hemorrhage, subdural hematoma, among others Medical Records Attestation: I reviewed the patient's medical records. Home Medications was personally reviewed by me Laboratory Data 11/25/24 14:16 11/25/24 14:16 Lab Results 11/25/24 Range/Units 14:16 WBC 4.85 (4.8-10.8) K/ul RBC 3.48 L (4.20-5.40) M/uL Hgb 12.0 (12.0-16.0) g/dl Hct 35.8 L (37.0-47.0) % MCV 102.9 H (80.0-100.0) fL MCH 34.5 H (25.0-34.0) pg MCHC 33.5 (32.0-36.0) g/dL RDW Std Deviation 50.8 H (36.4-46.3) fL RDW Coeff of Raj 13.5 (11.5-14.5) % Plt Count 180 (130-400) K/uL MPV 9.9 (9.4-12.4) fL Immature Gran % (Auto) 0.2 % Neut % (Auto) 78.0 % Lymph % (Auto) 14.2 % Dukes % (Auto) 6.0 % Eos % (Auto) 1.2 % Baso % (Auto) 0.4 % Neut # (Auto) 3.78 (1.40-6.50) K/uL Lymph # (Auto) 0.69 L (1.20-3.40) K/uL Dukes # (Auto) 0.29 (0.11-0.59) K/uL Eos # (Auto) 0.06 (0.00-0.50) K/uL Baso # (Auto) 0.02 (0.00-0.20) K/uL Immature Gran # (Auto) 0.01 (0.01-0.20) K/uL Sodium 142 (136-145) mmol/L Potassium 3.8 (3.5-5.1) mmol/L Chloride 105 (98-107) mmol/L Carbon Dioxide 31 (21-32) mmol/L Anion Gap 6 (3-11) BUN 14 (6-23) mg/dl Creatinine 0.72 (0.6-1.2) mg/dl Est Cr Clr Drug Dosing Not Reportable eGFR 81.38 BUN/Creatinine Ratio 19.4 (10-20) Glucose 95 (70-99(Fasting)) mg/dl Calcium 9.2 (8.6-10.3) mg/dl Total Bilirubin 0.5 (0.2-1.0) mg/dl AST 25 (13-39) U/L ALT 17 (7-52) U/L Alkaline Phosphatase 84 (34-104) U/L Total Protein 6.3 (6.0-8.3) gm/dl Albumin 3.9 (3.4-5.0) gm/dl Globulin 2.4 L (2.5-4.0) gm/dl Albumin/Globulin Ratio 1.6 (0.9-2) Imaging Data Radiologist's Impression: Cervical Spine CT 11/25/24 09:19 CT SCAN OF THE CERVICAL SPINE CLINICAL HISTORY: Fall. COMPARISON STUDY: No priors TECHNIQUE: CT scan of the cervical spine is performed from the skull base to the upper thoracic spine. Images are reviewed in the axial, sagittal, and coronal planes. IV contrast was not administered for this examination. A dose lowering technique was utilized adhering to the principles of ALARA. CT DOSE: 1092.3 mGy.cm FINDINGS: Skeletal structures: The skeletal structures are well mineralized. There is no evidence of fracture or subluxation involving the cervical spine. Vertebral body height and alignment are maintained. There is straightening of the cervical lordosis. Anterior osteophytes are seen throughout. There is bony fusion of the C6 and C7 vertebral bodies. The odontoid process and lateral masses are intact. The atlantoaxial articulation is preserved noting productive degenerative change. The spinous processes appear intact. There is moderate multilevel cervical spondylosis. Uncovertebral and facet arthropathy contribute to neural foraminal stenosis at several levels. Intervertebral discs: As noted above there is bony fusion at C6-C7. There is moderate disc space narrowing at C4-C5 and C5-C6. Milder narrowing is seen at the remaining cervical levels. Central canal: Posterior disc osteophyte complexes are seen at all cervical levels between C2-C3 and C5-C6. This may contribute to multilevel acquired compromise of the central canal. Soft tissues: The prevertebral and paraspinous soft tissues are within normal limits. The thyroid gland is heterogeneous. There is atherosclerotic calcification of the carotid bulbs. Calvarium: The visualized calvarium at the skull base appears intact. Brain parenchyma: Partially visualized brain parenchyma at the skull base is within normal limits. Sinuses and mastoids: The visualized paranasal sinuses are clear. The mastoid air cells are well pneumatized. Lung apices: A 6 mm left upper lobe pulmonary nodule is seen on axial image #[id number]. Calcified granulomas are seen in the right upper lobe. The imaged lung parenchyma is otherwise clear as visualized. IMPRESSION: 1. There is no evidence of fracture or subluxation involving the cervical spine. 2. Osteopenia and spondylotic change as above. 3. There is a 6 mm left upper lobe pulmonary nodule. This is pathologically indeterminant, and follow-up with a dedicated chest CT is recommended in 3-4 months time for reevaluation and for assessment of the thorax. ACT 112: Positive. There are findings on this exam that require communication between the performing entity and the patient following Patient Test Result Information Act ([place] Act 112) guidelines. Electronically signed by: Mark Daugherty M.D. 11/25/2024 9:57 AM Hand X-Ray 11/25/24 09:19 XR hand RT min 3V routine CLINICAL HISTORY: fall COMPARISON: None FINDINGS: There are acute oblique mildly displaced fractures at the shafts of the fourth and fifth metacarpals. No other fracture or dislocation seen. There are scattered degenerative changes most severe at the first CMC joint. IMPRESSION: Acute fractures at the fourth and fifth metacarpals. ACT 112: Negative or not required by law. Electronically signed by: Tian Mackenzie M.D. 11/25/2024 12:07 PM Hand X-Ray 11/25/24 09:19 XR hand LT min 3V routine CLINICAL HISTORY: fall COMPARISON: None FINDINGS: Evaluation of the fingers is limited due to overlap on the lateral view. There is an acute oblique mildly displaced fracture at the proximal shaft of the fourth metacarpal. No other fracture or dislocation seen. There are scattered degenerative changes most severe at the first CMC joint. IMPRESSION: Acute fracture at the fourth metacarpal. ACT 112: Negative or not required by law. Electronically signed by: Tian Mackenzie M.D. 11/25/2024 12:[address] 11/25/24 09:19 CT head/brain wo con CLINICAL HISTORY: 84 years-old Female with fall. Acute head trauma status post fall TECHNIQUE: Multiple axial CT images of the head were obtained without contrast. A dose lowering technique was utilized adhering to the principles of ALARA. COMPARISON: CT cervical spine of same day FINDINGS: No acute intracranial hemorrhage, midline shift, intracranial mass, hydrocephalus, territorial ischemia or abnormal extra-axial collection. Mild involutional changes. The calvarium is intact. The paranasal sinuses, mastoid air cells, and middle ear cavities are clear. IMPRESSION: No acute intracranial abnormality or calvarial fracture. ACT 112: Negative or not required by law. The above report was generated using voice recognition software. It may contain grammatical, syntax or spelling errors. Electronically signed by: Liborio Levine M.D. 11/25/2024 9:57 AM Hip/Pelvis X-Ray 11/25/24 09:19 XR hip RT 2V w pelvis CLINICAL HISTORY: fall COMPARISON: 10/06/2022 FINDINGS: Skin fold artifact overlies the hips and bowel artifact overlies the sacrum and coccyx. There are degenerative changes at the hips, severe on the right and moderate on the left. No fracture or dislocation seen. IMPRESSION: No fracture seen. ACT 112: Negative or not required by law. Electronically signed by: Tian Mackenzie M.D. 11/25/2024 12:07 PM Ribs w/Chest X-Ray 11/25/24 09:19 XR ribs RT min 2V w [id number] CLINICAL HISTORY: fall COMPARISON: 10/16/2022 FINDINGS: Heart size and pulmonary vasculature are normal. Stable hyperexpanded lungs. No consolidation or pleural effusion seen. No pneumothorax. There is a possible nondisplaced fracture anteriorly and laterally at the right fifth rib. No displaced rib fracture seen. IMPRESSION: Possible nondisplaced right mid rib fracture with no pneumothorax. ACT 112: Negative or not required by law. Electronically signed by: Tian Mackenzie M.D. 11/25/2024 12:10 PM MDM Narrative Patient is an 84-year-old female who presents to the emergency department with complaints of a ground-level fall at home. Patient states that prior to arrival she fell at home and slid just under her dining room table. Patient reports that she did not get lightheaded or dizzy prior to the fall and believes that she tripped on a rug or did not lift her foot high enough. Patient states that she did hit her head but denies any loss of consciousness. Patient takes a baby aspirin daily but denies any other blood thinners. Patient notes pain in her bilateral hands, right ribs and right hip. Patient denies any head pain. Patient was evaluated by myself and findings were noted in the physical exam above. Patient was ordered x-rays of her bilateral hands, right hip, right ribs and chest, as well as CTs of her head and cervical spine. Patient's x-ray of the right ribs and chest was completed and interpreted by radiology to note a nondisplaced right mid rib fracture with no pneumothorax noted. Patient's right hip and pelvis x-ray was completed and interpreted by radiology to also no no fracture or dislocation seen. Patient had a CT of the head that was completed and interpreted by radiology did note no intracranial abnormality or fracture. Patient did have x-rays of the bilateral hands and her right hand x-ray noted a fracture at the 4th and 5th metacarpals. They are acute oblique mildly displaced fractures of the shafts of the 4th and 5th metacarpals. The patient's left hand x-ray also noted an acute fracture at the fourth metacarpal as well. I discussed with the patient that we would need to immobilize both of these injuries with Ortho-Glass splints and because we are immobilizing both of her hands that it would be reasonable to keep her here in the hospital since her activities of daily living would be hindered and difficult with having splints on both of her hands. The patient does live at home alone and her son lives across the street however he felt more comfortable with her staying in the hospital and felt it would be unsafe for her to go home alone. I reached out and spoke with the [facility] hospitalist group regarding this patient. I spoke with Kendall and gave him a full report on the patient's chief complaint, current status and the results of her imaging and he agreed to admit the patient under Dr. Brooke's service for admission to the hospital [facility]. The patient was ordered some baseline labs for admission and will be further evaluated and managed by the [facility] hospitalist group. Please refer to their documentation for further management of this patient. Impression Fracture of right fifth rib, Metacarpal bone fracture Discharge Plan Visit Data Chief Complaint: Fall Stated Complaint: FALL THIS AM, R SIDE PAIN ED Provider: Tapan Izaguirre ED Midlevel Provider: Amie Brown Discharge Problem: Fracture of right fifth rib, Metacarpal bone fracture Patient Disposition: Admitted As Inpatient Condition: Fair Discharge Instructions Interventions: ED Discharge Assessment Last Done: 11/25/24 16:45 ED DC CONDITION Conditon at Discharge Condition at Discharge: Fair Addendum November 25, 2024 21:47 I was consulted by the Advanced Practice Provider and was substantively involved in the patient's visit.This includes aspects of the HPI, MDM, diagnostic interpretations, and disposition/plan. I discussed the case with the BO and agree with the findings and plan as documented in BO Kevin's note. Discharge Problem: Metacarpal bone fracture Qualifiers: Encounter type: initial encounter Metacarpal bone: unspecified metacarpal F racture type: closed Metacarpal location: unspecified portion of metacarpal F racture morphology: unspecified fracture morphology Qualified Code(s): S62.309A - Unspecified fracture of unspecified metacarpal bone, initial encounter for closed fracture
--- NOTE | 2024-11-25 09:59 | CT Scan Report ---
CT SCAN OF THE CERVICAL SPINE CLINICAL HISTORY: Fall. COMPARISON STUDY: No priors TECHNIQUE: CT scan of the cervical spine is performed from the skull base to the upper thoracic spine . Images are reviewed in the axial, sagittal, and coronal planes. IV contrast was not administered fo r this examination. A dose lowering technique was utilized adhering to the principles of ALARA. CT DOSE: 1092.3 mGy.cm FINDINGS: Skeletal structures: The skeletal structures are well mineralized. There is no evidence of fracture o r subluxation involving the cervical spine. Vertebral body height and alignment are maintained. There is straightening of the cervical lordosis. Anterior osteophytes are seen throughout. There is bony f usion of the C6 and C7 vertebral bodies. The odontoid process and lateral masses are intact. The atla ntoaxial articulation is preserved noting productive degenerative change. The spinous processes appea r intact. There is moderate multilevel cervical spondylosis. Uncovertebral and facet arthropathy cont ribute to neural foraminal stenosis at several levels. Intervertebral discs: As noted above there is bony fusion at C6-C7. There is moderate disc space narr owing at C4-C5 and C5-C6. Milder narrowing is seen at the remaining cervical levels. Central canal: Posterior disc osteophyte complexes are seen at all cervical levels between C2-C3 and C5-C6. This may contribute to multilevel acquired compromise of the central canal. Soft tissues: The prevertebral and paraspinous soft tissues are within normal limits. The thyroid gla nd is heterogeneous. There is atherosclerotic calcification of the carotid bulbs. Calvarium: The visualized calvarium at the skull base appears intact. Brain parenchyma: Partially visualized brain parenchyma at the skull base is within normal limits. Sinuses and mastoids: The visualized paranasal sinuses are clear. The mastoid air cells are well pneu matized. Lung apices: A 6 mm left upper lobe pulmonary nodule is seen on axial image #619. Calcified granuloma s are seen in the right upper lobe. The imaged lung parenchyma is otherwise clear as visualized. IMPRESSION: 1. There is no evidence of fracture or subluxation involving the cervical spine. 2. Osteopenia and spondylotic change as above. 3. There is a 6 mm left upper lobe pulmonary nodule. This is pathologically indeterminant, and follow -up with a dedicated chest CT is recommended in 3-4 months time for reevaluation and for assessment o f the thorax. ACT 112: Positive. There are findings on this exam that require communication between the performing entity and the patient following Patient Test Result Information Act ([place] Act 112) guidelines. Electronically signed by: Mark Daugherty M.D. 11/25/2024 9:57 AM
--- NOTE | 2024-11-25 09:59 | CT Scan Report ---
CT head/brain wo con CLINICAL HISTORY: 84 years-old Female with fall. Acute head trauma status post fall TECHNIQUE: Multiple axial CT images of the head were obtained without contrast. A dose lowering tech nique was utilized adhering to the principles of ALARA. COMPARISON: CT cervical spine of same day FINDINGS: No acute intracranial hemorrhage, midline shift, intracranial mass, hydrocephalus, territorial ischem ia or abnormal extra-axial collection. Mild involutional changes. The calvarium is intact. The paranasal sinuses, mastoid air cells, and middle ear cavities are clear . IMPRESSION: No acute intracranial abnormality or calvarial fracture. ACT 112: Negative or not required by law. The above report was generated using voice recognition software. It may contain grammatical, syntax o r spelling errors. Electronically signed by: Liborio Levine M.D. 11/25/2024 9:57 AM
--- NOTE | 2024-11-25 12:08 | XRay Report ---
XR hip RT 2V w pelvis CLINICAL HISTORY: fall COMPARISON: 10/06/2022 FINDINGS: Skin fold artifact overlies the hips and bowel artifact overlies the sacrum and coccyx. Th ere are degenerative changes at the hips, severe on the right and moderate on the left. No fracture o r dislocation seen. IMPRESSION: No fracture seen. ACT 112: Negative or not required by law. Electronically signed by: Tian Mackenzie M.D. 11/25/2024 12:07 PM
--- NOTE | 2024-11-25 12:09 | XRay Report ---
XR hand LT min 3V routine CLINICAL HISTORY: fall COMPARISON: None FINDINGS: Evaluation of the fingers is limited due to overlap on the lateral view. There is an acute oblique mildly displaced fracture at the proximal shaft of the fourth metacarpal. No other fracture or dislocation seen. There are scattered degenerative changes most severe at the first CMC joint. IMPRESSION: Acute fracture at the fourth metacarpal. ACT 112: Negative or not required by law. Electronically signed by: Tian Mackenzie M.D. 11/25/2024 12:08 PM
--- NOTE | 2024-11-25 12:09 | XRay Report ---
XR hand RT min 3V routine CLINICAL HISTORY: fall COMPARISON: None FINDINGS: There are acute oblique mildly displaced fractures at the shafts of the fourth and fifth m etacarpals. No other fracture or dislocation seen. There are scattered degenerative changes most camryn re at the first CMC joint. IMPRESSION: Acute fractures at the fourth and fifth metacarpals. ACT 112: Negative or not required by law. Electronically signed by: Tian Mackenzie M.D. 11/25/2024 12:07 PM
--- NOTE | 2024-11-25 12:12 | XRay Report ---
XR ribs RT min 2V w CXR1V CLINICAL HISTORY: fall COMPARISON: 10/16/2022 FINDINGS: Heart size and pulmonary vasculature are normal. Stable hyperexpanded lungs. No consolidat ion or pleural effusion seen. No pneumothorax. There is a possible nondisplaced fracture anteriorly a nd laterally at the right fifth rib. No displaced rib fracture seen. IMPRESSION: Possible nondisplaced right mid rib fracture with no pneumothorax. ACT 112: Negative or not required by law. Electronically signed by: Tian Mackenzie M.D. 11/25/2024 12:10 PM
[2024-11-25] MEDS: IBUPROFEN 600 MG TAB PO STA (13:07)
--- NOTE | 2024-11-25 13:47 | History & Physical Report ---
Date of Service November 25, 2024 Assessment & Plan (1) Fall: (2) Metacarpal bone fracture: (3) Fracture of right fifth rib: (4) Osteoporosis: Plan This patient is an 84-year-old female with PMH of osteoporosis who sustained a ground-level fall while at home alone on 11/25. + Head strike. - LOC. Bilateral metacarpal fractures on arrival. Patient lives alone, and family expressed some concern about her returning home with bilateral hand fractures. #Fall | Bilateral metacarpal fractures Right hand XR revealed acute fractures at the 4th and 5th metacarpals Left hand XR revealed acute fracture at the 4th metacarpal Orthopedic surgery consult appreciate Splint application to both hands for now Neurovascular checks q4h due to hand/finger swelling Pain control with acetaminophen PRN; Oxycodone 5 mg tablets as needed for breakthrough pain PT/OT evaluations appreciated Fall precautions UA ordered, pending #Rib fracture Possible nondisplaced right 5th rib fracture on CXR Patient endorses pain at that location Encourage incentive spirometry Lidocaine patch PRN Pain control (as above) #Osteoporosis Patient is normally on ibandronate every 30 days AM vitamin D level #HLD Continue statin #HTN Continue amlodipine, valsartanHCTZ Disposition: Admit to MedSurg VTE PPx: SCDs pending Ortho eval History of Present Illness Chief Complaint: Fall Primary Care Provider: Seun Hillman DO Mrs. Ames is an 84-year-old female with PMH of lower GI bleed, diverticulitis, and fibromyalgia. She presented on 11/25 after sustaining a ground-level fall at home. Patient lives alone. She was carrying a dish of scrambled eggs into the kitchen when she fell forward and "flew" under the kitchen table. Given she was holding a plate, she could not catch herself. Positive head strike. No LOC. Patient takes aspirin 81 mg daily but no other blood thinners. She landed on her hands and right hip. Patient does not use ambulatory assistance devices at baseline. She then called her son/glcswiyd-zx-mco who live across the street. Her grandson was still home, and helped her get back up. Patient thought she might have a "sprained" the hands and her fingers before they start to swell up. She denies any pain/discomfort in her 5th/4th metacarpals at time of admission. However she does report that she has right rib pain just below the breastbone, and it hurts to take deep breaths. Patient took her regular morning medicine today. No recent change in medications. She manages her own medicine at home. She has no prior injuries to her hands or wrists. However, she does have a history of osteoporosis and takes ibandronate monthly for this. No sick contacts to her knowledge. Patient denies smoking, tobacco use, or recent alcohol use. Patient is hypertensive at 150/106 at time admission; vitals otherwise stable. ED Course: Ibuprofen 600mg p.o. x 1 ROS: Patient endorses headaches (chronic), pleuritic CP (right sided rib pain with deep breaths). Patient denies fever, chills, night-sweats, dizziness, lightheadedness, pain in the hands, chest pain, cough, hemoptysis, SOB, abdominal pain, N/V/D, or change in urinary bowel habits. Allergies Allergy/AdvReac Type Severity Reaction Status Date / Time Iodinated Contrast Media Allergy Intermediate "red dye Verified 11/08/24 11:08 injection" for scans - Hives nickel Allergy Unknown Rash Verified 11/08/24 11:08 Home Medications Medication Instructions Recorded Confirmed Type aspirin 81 mg tablet,delayed 81 mg PO QPM #90 tabs 04/05/21 11/25/24 Rx release multivitamin 1 tab PO QAM 08/31/21 11/25/24 History propylene glycol 0.6 % eye drops 1 drp ophthalmic (eye) DAILY #20 mL 03/20/22 11/25/24 Rx (Systane Complete) loperamide 2 mg capsule (Imodium 2 mg PO Q6H PRN Constipation 10/13/22 11/25/24 History A-D) hydroxyurea 500 mg capsule 500 mg PO QAM 12/10/22 11/25/24 History amlodipine 5 mg tablet 5 mg PO QAM #90 tabs 04/20/24 11/25/24 Rx atorvastatin 40 mg tablet 40 mg PO Q OTHER DAY 90 days #45 04/20/24 11/25/24 Rx tabs valsartan 320 1 tab PO QAM #90 tabs 04/20/24 11/25/24 Rx mg-hydrochlorothiazide 25 mg tablet ibandronate 150 mg tablet 150 mg PO Q30D #3 tabs 06/27/24 11/25/24 Rx metoprolol succinate 25 mg 25 mg PO DAILY #90 tabs 06/27/24 11/25/24 Rx tablet,extended release 24 hr elmhrjizuq-qbogmvslxppxi-mhinonub 1 tab PO Q6H PRN Complex tension 10/27/24 11/25/24 Rx 50 mg-325 mg-40 mg tablet headache #120 tabs ferrous sulfate 27 mg iron tablet 27 mg PO DAILY 11/25/24 11/25/24 History cholecalciferol (vitamin D3) 25 25 mcg PO QAM #30 caps 12/01/24 Rx mcg (1,000 unit) capsule lidocaine 5 % topical patch 1 patch topical DAILY #30 ea 12/01/24 Rx oxycodone 5 mg tablet 5 mg PO Q6H PRN pain #10 tabs 12/01/24 Rx sennosides 8.6 mg-docusate sodium 1 tab-cap PO BID #60 tabs 12/01/24 Rx 50 mg tablet (Senna with Docusate Sodium) Past Med/Surg History Problem List (Updated 12/02/24 @ 00:07 by Miles Alejandre) Arthritis of right hip Fracture of right fifth rib (Acute 11/25/24) nondisplaced fracture anteriorly and laterally at the right fifth rib from a fall Osteoporosis Metacarpal bone fracture (Acute 11/25/24) Acute fracture at the left fourth metacarpal and Acute fractures at the right fourth and fifth metacarpals from a fall. Fall Arthralgia of multiple sites (Acute) Breast asymmetry (Acute) Cataract (Acute) Fibromyalgia (Acute) Weight loss (Acute) Diverticular disease Chronic tension headache Constipation Acute proctitis (Acute) Lower GI bleed Thrombocytosis Hypokalemia Acute blood loss anemia Gastric mass Diarrhea Abnormal EKG Pre-operative cardiovascular exam, new EKG abnormalities c/w ischemia Benign essential hypertension recently seen in the ER at [facility] for poss. A-fib, per cardiology visit note, pt does not have atrial fibrillation. History of diverticulitis Medical History History of anemia History of COVID-19 11/2021- head and sinus congestion; resolved Hx of basal cell carcinoma IBS (irritable bowel syndrome) Degenerative disc disease Osteoarthritis Urinary incontinence Fibromyalgia Migraines Hypertension Migraine headache Hyperlipidemia Heart disease Surgical History History of esophagogastroduodenoscopy (EGD) Hx of basal cell carcinoma excision Hx of right cataract extraction History of cataract surgery left cataract History of ankle surgery x 2 - Rt History of bowel resection History of cervical spinal surgery limited ROM side to side History of colonoscopy History of cardiac cath 1989 & 1999 - no stents , [facility]; dr. silva, [facility] [place] History of breast biopsy History of appendectomy History of bladder surgery x 4 History of hysterectomy JINA History of wisdom tooth extraction History of shoulder surgery Lt History of knee surgery Lt x 2 History of spinal surgery lumbar spine; hardware present Family History Uncle Colorectal cancer Sister Stroke Other Breast cancer No family history of adverse response to anesthesia Denies family history of Ovarian cancer Prostate cancer Myocardial infarction Social History Smoking Status: Never smoker Second Hand Exposure: No; Do You Dip or Chew Tobacco: No; Hx Alcohol Use: No Hx Substance Use: No Preferred Language: Panamanian Communication Ability: Effective Visual Impairment: No Limitations Hearing Ability: Normal Laborer Cutting Tool Required: No Beliefs That Will Affect Care: None marital status: / Current Living Situation: Alone Current Living Situation Comment: family lives across the street current occupational status: retired How many Children do You have: 1 Feels Safe at Home: Yes Childhood Exposure to Second-Hand Smoke: Yes Diet: regular caffeine: Yes during the past year weight has: remained stable Dental Care, Regularly: Yes Physical Activity Frequency: Daily Seatbelt Use: always Sunscreen Use: Yes Assistive Devices: Cane and Walker Review of Systems Review of Systems: See HPI above Physical Exam Physical Exam: General: no acute distress; pleasant affect; znjxdmce-vs-cil at bedside; non- toxic appearing; frail-appearing; cooperative; SpO2 96% on RA HEENT: normocephalic, atraumatic; PERRLA; vision and hearing intact Neck: supple; trachea midline; patient demonstrated to shrug shoulders against resistance without pain/unilateral deficits; negative C-spine tenderness; patient demonstrated ability to rotate neck left and right without pain Skin: warm, dry without signs of tenting; no cyanosis Right hand: Newly dressed splint; lasting room supervisor strength 3/5 using thumb and 2nd/3rd digits; N/V intact Left hand: Newly dressed splint; lasting room supervisor strength 3/5 using thumb and 2nd/3rd d igits; N/V intact CV: chest wall NTP; RRR; S1/S2 normal; no murmurs/rubs/gallops; pulses intact and symmetric at radial, DP, and PT Lungs: no acute respiratory distress; symmetrical chest wall expansion; clear breath sounds across all lung dykes w/o adventitious sounds; no wheezing ABD: Soft, NTP; BS present; no rebound/guarding; no distention MSK: no tics or fasciculations; no edema noted in the LEs b/l, nonerythematous; patient demonstrates ability to flex/extend both elbows with 5/5 strength Neuro: A&Ox3; normal mood and affect; fluent speech; patient reports sensation is intact and symmetric in the fingers bilaterally assessed via light touch, as well as the lower extremity bilaterally assessed via light touch Results & Data Results & Data Vital Signs (Past 12 Hours) Vital Signs Temp Pulse Resp BP Pulse Ox O2 Del Method 11/25/24 12:54 78 20 150/106 H 98 11/25/24 11:38 70 20 201/95 H 98 11/25/24 10:28 65 11/25/24 08:56 36.9 C 82 18 175/79 H 98 Room Air Diagnostic Findings Cervical Spine CT 11/25/24 09:19 CT SCAN OF THE CERVICAL SPINE CLINICAL HISTORY: Fall. COMPARISON STUDY: No priors TECHNIQUE: CT scan of the cervical spine is performed from the skull base to the upper thoracic spine. Images are reviewed in the axial, sagittal, and coronal planes. IV contrast was not administered for this examination. A dose lowering technique was utilized adhering to the principles of ALARA. CT DOSE: 1092.3 mGy.cm FINDINGS: Skeletal structures: The skeletal structures are well mineralized. There is no evidence of fracture or subluxation involving the cervical spine. Vertebral body height and alignment are maintained. There is straightening of the cervical lordosis. Anterior osteophytes are seen throughout. There is bony fusion of the C6 and C7 vertebral bodies. The odontoid process and lateral masses are intact. The atlantoaxial articulation is preserved noting productive degenerative change. The spinous processes appear intact. There is moderate multilevel cervical spondylosis. Uncovertebral and facet arthropathy contribute to neural foraminal stenosis at several levels. Intervertebral discs: As noted above there is bony fusion at C6-C7. There is moderate disc space narrowing at C4-C5 and C5-C6. Milder narrowing is seen at the remaining cervical levels. Central canal: Posterior disc osteophyte complexes are seen at all cervical levels between C2-C3 and C5-C6. This may contribute to multilevel acquired compromise of the central canal. Soft tissues: The prevertebral and paraspinous soft tissues are within normal limits. The thyroid gland is heterogeneous. There is atherosclerotic calcification of the carotid bulbs. Calvarium: The visualized calvarium at the skull base appears intact. Brain parenchyma: Partially visualized brain parenchyma at the skull base is within normal limits. Sinuses and mastoids: The visualized paranasal sinuses are clear. The mastoid air cells are well pneumatized. Lung apices: A 6 mm left upper lobe pulmonary nodule is seen on axial image #619. Calcified granulomas are seen in the right upper lobe. The imaged lung parenchyma is otherwise clear as visualized. IMPRESSION: 1. There is no evidence of fracture or subluxation involving the cervical spine. 2. Osteopenia and spondylotic change as above. 3. There is a 6 mm left upper lobe pulmonary nodule. This is pathologically indeterminant, and follow-up with a dedicated chest CT is recommended in 3-4 months time for reevaluation and for assessment of the thorax. ACT 112: Positive. There are findings on this exam that require communication between the performing entity and the patient following Patient Test Result Information Act ([place] Act 112) guidelines. Electronically signed by: Mark Daugherty M.D. 11/25/2024 9:57 AM Hand X-Ray 11/25/24 09:19 XR hand RT min 3V routine CLINICAL HISTORY: fall COMPARISON: None FINDINGS: There are acute oblique mildly displaced fractures at the shafts of the fourth and fifth metacarpals. No other fracture or dislocation seen. There are scattered degenerative changes most severe at the first CMC joint. IMPRESSION: Acute fractures at the fourth and fifth metacarpals. ACT 112: Negative or not required by law. Electronically signed by: Tian Mackenzie M.D. 11/25/2024 12:07 PM Hand X-Ray 11/25/24 09:19 XR hand LT min 3V routine CLINICAL HISTORY: fall COMPARISON: None FINDINGS: Evaluation of the fingers is limited due to overlap on the lateral view. There is an acute oblique mildly displaced fracture at the proximal shaft of the fourth metacarpal. No other fracture or dislocation seen. There are scattered degenerative changes most severe at the first CMC joint. IMPRESSION: Acute fracture at the fourth metacarpal. ACT 112: Negative or not required by law. Electronically signed by: Tian Mackenzie M.D. 11/25/2024 12:[address] 11/25/24 09:19 CT head/brain wo con CLINICAL HISTORY: 84 years-old Female with fall. Acute head trauma status post fall TECHNIQUE: Multiple axial CT images of the head were obtained without contrast. A dose lowering technique was utilized adhering to the principles of ALARA. COMPARISON: CT cervical spine of same day FINDINGS: No acute intracranial hemorrhage, midline shift, intracranial mass, hydrocephalus, territorial ischemia or abnormal extra-axial collection. Mild involutional changes. The calvarium is intact. The paranasal sinuses, mastoid air cells, and middle ear cavities are clear. IMPRESSION: No acute intracranial abnormality or calvarial fracture. ACT 112: Negative or not required by law. The above report was generated using voice recognition software. It may contain grammatical, syntax or spelling errors. Electronically signed by: Liborio Levine M.D. 11/25/2024 9:57 AM Hip/Pelvis X-Ray 11/25/24 09:19 XR hip RT 2V w pelvis CLINICAL HISTORY: fall COMPARISON: 10/06/2022 FINDINGS: Skin fold artifact overlies the hips and bowel artifact overlies the sacrum and coccyx. There are degenerative changes at the hips, severe on the right and moderate on the left. No fracture or dislocation seen. IMPRESSION: No fracture seen. ACT 112: Negative or not required by law. Electronically signed by: Tian Mackenzie M.D. 11/25/2024 12:07 PM Ribs w/Chest X-Ray 11/25/24 09:19 XR ribs RT min 2V w CXR1V CLINICAL HISTORY: fall COMPARISON: 10/16/2022 FINDINGS: Heart size and pulmonary vasculature are normal. Stable hyperexpanded lungs. No consolidation or pleural effusion seen. No pneumothorax. There is a possible nondisplaced fracture anteriorly and laterally at the right fifth rib. No displaced rib fracture seen. IMPRESSION: Possible nondisplaced right mid rib fracture with no pneumothorax. ACT 112: Negative or not required by law. Electronically signed by: Tian Mackenzie M.D. 11/25/2024 12:10 PM Code Status & VTE Plan Code Status DNR/DNI (discussed with with patient and patient's [id number] Marija at bedside) Supervising Physician Co-Signing Physician Notes Attending Attestation and Admit Note: Pt seen & examined, chart reviewed, admit care plan d/w AMPARO Jefferson. I agree w/ the mckinney components of his admission documentation. 84yo female with HTN, hyperlipidemia, prior lower GI bleed, prior diverticulitis, lumbar spine surgery, and fibromyalgia. She presented after suffering a fall at home. She fell forward, striking her hands and her right chest. Upon admission had the following: -Right hand x-rays revealed acute fractures of the 4th and 5th metacarpals; left hand x-rays revealed an acute fracture of the 4th metacarpal. -Right 5th rib fracture. While in the ER she was placed in ulnar gutter splints b/l for the metacarpal fractures. PMH/PSH/allergies/meds/sochx - reviewed VSS, afebrile (BPs had been elevated upon ER presentation, now improved) gen - pleasant, NAD neck - no JVD mouth - MMM heart - RRR, s1 s2, no murmur lungs - CTA b/l abd - soft NT ND BS+ ext - no leg edema, pulses 2+ b/l musculo - ulnar gutter splints in place b/l hands; exposed fingers with normal cap refill psych - a/o x 3 labs reviewed imaging reviewed A/P: 1. right 4th/5th metacarpal fractures 2. left 4th metacarpal fracture 3. right 5th rib fracture 4. fall leading to #1, #2, # 5. HTN, hyperlipidemia -appreciate ER assistance with splint application b/l -pain meds PRN -25-OH vit D level am -formal ortho consult -cont BP meds Jarrod Saenz MD PG Care Time/CCT Total # of Minutes Spent Total Time Spent with Patient: Total time spent is greater than 50% in coordination of care (as documented) at patient's floor/unit and/or counseling patient: [place] [id number] INT INP/OBS CARE 2/55MIN Patient Type Established Medical Decision Making Moderate Complexity Diagnoses Fall W19.XXXA Metacarpal bone fracture S62.309A Fracture of right fifth rib S22.31XA Osteoporosis M81.0
[2024-11-25 14:31] LABS: Hematocrit (blood only) 35.8 % (37.0-47.0); Hemoglobin 12.0 g/dl (12.0-16.0); Immature Granulocytes # (auto) 0.01 K/uL (0.01-0.20); Immature Granulocytes % (auto) 0.2 %; Mean Corpuscular Hemoglobin 34.5 pg (25.0-34.0); Mean Corpuscular Volume 102.9 fL (80.0-100.0); Platelet Count 180 K/uL (130-400); RDW Standard Deviation 50.8 fL (36.4-46.3); Red Blood Count 3.48 M/uL (4.20-5.40); White Blood Count 4.85 K/ul (4.8-10.8)
[2024-11-25 14:54] LABS: Alanine Aminotransferase 17 U/L (7-52); Albumin Globulin Ratio 1.6 (0.9-2); Albumin Level 3.9 gm/dl (3.4-5.0); Alkaline Phosphatase 84 U/L (34-104); Anion Gap 6 (3-11); Bilirubin,Total 0.5 mg/dl (0.2-1.0); Blood Urea Nitrogen 14 mg/dl (6-23); Calcium 9.2 mg/dl (8.6-10.3); Carbon Dioxide 31 mmol/L (21-32); Chloride 105 mmol/L (98-107); Globulin 2.4 gm/dl (2.5-4.0); Glucose 95 mg/dl (70-99(Fasting)); Potassium 3.8 mmol/L (3.5-5.1); Sodium 142 mmol/L (136-145); Total Protein 6.3 gm/dl (6.0-8.3)
[2024-11-25] MEDS ORDERED: ONDANSETRON INJ 2 MG/ML 2 ML VIAL IV PRN (17:01)
[2024-11-25] MEDS ORDERED: MELATONIN 3 MG TAB PO PRN (17:01)
[2024-11-25 19:19] LABS: Appearance Urine Clear (Clear); Glucose Urine UA Negative (Negative)
[2024-11-25] MEDS: ACETAMINOPHEN 325 MG TAB PO PRN (19:49)
[2024-11-25] MEDS: ASPIRIN 81 MG ECTAB PO SCH (20:42)
--- NOTE | 2024-11-25 21:13 | Orthopedic Consultation ---
Date of Service November 25, 2024 Assessment & Plan (1) Metacarpal bone fracture: 84-year-old female with quite healthy and spry lives by herself status post a fall with bilateral hand metacarpal fractures as well as some rib fractures. She has got chronic hip arthritis but no fracture. She has been splinted. She is pretty comfortable. Plan: From an orthopedic standpoint her hands are treated adequately for now. She is in ulnar gutter splints and we will leave those on for 2 weeks. I will need to see her back in 2 weeks. Will change her probably to a short arm cast for an additional 2 weeks. She can use her hands within the limits of the splint. As far as the hip and we will continue to follow this along. No further invention is warranted. That she can mobilize and use her hands as tolerated within her limits of pain. Any orthopedic questions can be directly [phone]. She is orthopedically okay for discharge anytime medically stable and okay. Needs a 2-week follow-up. (2) Fracture of right fifth rib: (3) Arthritis of right hip: History of Present Illness Reason for Consultation: . Bilateral hand metacarpal fractures. Requesting Physician: . Attending Physician: Jarrod Saenz MD . The patient is an 84-year-old very pleasant female lives by herself and [id number]-[id number] who sustained a fall earlier in the day. Her sneaker caught on the ground when she was walking in her residence and she fell forward onto her hands. She was brought to the emergency room d-zhow-kzuv-old bilateral metacarpal fractures. We are consulted for evaluation. She has been put in splints. She denies any other injuries. Does have a history of chronic hip arthritis. Despite this she gets around quite well. Denies any head injury. No neck pain. No loss of consciousness. Allergies Allergy/AdvReac Type Severity Reaction Status Date / Time Iodinated Contrast Media Allergy Intermediate "red dye Verified 11/08/24 11:08 injection" for scans - Hives nickel Allergy Unknown Rash Verified 11/08/24 11:08 Home Medications Medication Instructions Recorded Confirmed Type aspirin 81 mg tablet,delayed 81 mg PO QPM #90 tabs 04/05/21 11/25/24 Rx release multivitamin 1 tab PO QAM 08/31/21 11/25/24 History propylene glycol 0.6 % eye drops 1 drp ophthalmic (eye) DAILY #20 mL 03/20/22 11/25/24 Rx (Systane Complete) loperamide 2 mg capsule (Imodium 2 mg PO Q6H PRN Constipation 10/13/22 11/25/24 History A-D) hydroxyurea 500 mg capsule 500 mg PO QAM 12/10/22 11/25/24 History amlodipine 5 mg tablet 5 mg PO QAM #90 tabs 04/20/24 11/25/24 Rx atorvastatin 40 mg tablet 40 mg PO Q OTHER DAY 90 days #45 04/20/24 11/25/24 Rx tabs valsartan 320 1 tab PO QAM #90 tabs 04/20/24 11/25/24 Rx mg-hydrochlorothiazide 25 mg tablet ibandronate 150 mg tablet 150 mg PO Q30D #3 tabs 06/27/24 11/25/24 Rx metoprolol succinate 25 mg 25 mg PO DAILY #90 tabs 06/27/24 11/25/24 Rx tablet,extended release 24 hr dxsigdcmbh-ribxlrfqyhqcc-azqwozal 1 tab PO Q6H PRN Complex tension 10/27/24 11/25/24 Rx 50 mg-325 mg-40 mg tablet headache #120 tabs ferrous sulfate 27 mg iron tablet 27 mg PO DAILY 11/25/24 11/25/24 History Past Med/Surg History Problem List (Updated 11/25/24 @ 21:11 by Antoine Downey MD) Arthritis of right hip Fracture of right fifth rib (Acute) Osteoporosis Metacarpal bone fracture (Acute) Fall Arthralgia of multiple sites (Acute) Breast asymmetry (Acute) Cataract (Acute) Fibromyalgia (Acute) Weight loss (Acute) Diverticular disease Chronic tension headache Constipation Acute proctitis (Acute) Lower GI bleed Thrombocytosis Hypokalemia Acute blood loss anemia Gastric mass Diarrhea Abnormal EKG Pre-operative cardiovascular exam, new EKG abnormalities c/w ischemia Benign essential hypertension recently seen in the ER at [facility] for poss. A-fib, per cardiology visit note, pt does not have atrial fibrillation. History of diverticulitis Medical History History of anemia History of COVID-19 11/2021- head and sinus congestion; resolved Hx of basal cell carcinoma IBS (irritable bowel syndrome) Degenerative disc disease Osteoarthritis Urinary incontinence Fibromyalgia Migraines Hypertension Migraine headache Hyperlipidemia Heart disease Surgical History History of esophagogastroduodenoscopy (EGD) Hx of basal cell carcinoma excision Hx of right cataract extraction History of cataract surgery left cataract History of ankle surgery x 2 - Rt History of bowel resection History of cervical spinal surgery limited ROM side to side History of colonoscopy History of cardiac cath 1989 & 1999 - no stents , [facility]; [place] [facility] [place] of breast biopsy History of appendectomy History of bladder surgery x 4 History of hysterectomy JINA History of wisdom tooth extraction History of shoulder surgery Lt History of knee surgery Lt x 2 History of spinal surgery lumbar spine; hardware present Family History Uncle Colorectal cancer Sister Stroke Other Breast cancer No family history of adverse response to anesthesia Denies family history of Ovarian cancer Prostate cancer Myocardial infarction Social History Smoking Status: Never smoker Second Hand Exposure: No; Do You Dip or Chew Tobacco: No; Hx Alcohol Use: No Hx Substance Use: No Preferred Language: Serbian Communication Ability: Effective Visual Impairment: No Limitations Hearing Ability: Normal Irrigation System Installer Required: No Beliefs That Will Affect Care: None marital status: / Current Living Situation: Alone Current Living Situation Comment: family lives across the street current occupational status: retired How many Children do You have: 1 Feels Safe at Home: Yes Safety Concerns: Feels Safe At This Time Childhood Exposure to Second-Hand Smoke: Yes Diet: regular caffeine: Yes during the past year weight has: remained stable Dental Care, Regularly: Yes Physical Activity Frequency: Daily Seatbelt Use: always Sunscreen Use: Yes Assistive Devices: Denture - Upper and Raised Toilet Seat Review of Systems All systems reviewed & are unremarkable except as noted in HPI & below. Physical Exam . Physical examination was a pleasant elderly female. Awake alert and oriented. Examination of the right hand reveals an ulnar gutter splint to be in place. She got some moderate bruising and swelling of the fingers. The fingers all look well aligned. She is neurologically intact. Examination of the left hand reveals a similar ulnar gutter splint. Some moderate swelling of the fingers. She is neurologically intact. No rotational deformity. Examination of the right hip reveals her to be slightly shorter and externally rotated. Minimal pain with hip motion. Is fairly stiff. Results & Data Results & Data Laboratory Results . Diagnostic Findings . X-rays of both hands were reviewed. X-rays of the left hand reveal a spiral fourth metacarpal fracture. Diffuse degenerative changes. X-rays of the right hand were also reviewed which show 4th and 5th metacarpal fractures. There are spiral fractures. Slightly more displacement. X-rays of the pelvis were reviewed and show advanced right hip arthritis. PG Care Time/CCT Total # of Minutes Spent Total Time Spent with Patient: Total time spent is greater than 50% in coordination of care (as documented) at patient's floor/unit and/or counseling patient: Coding Level of Care Code 83555 IN/OBS CONSULT LVL 4,60M (57 - DECISION FOR SURGERY) Diagnoses Metacarpal bone fracture S62.309A Encounter type: initial encounter Fracture morphology: unspecified fracture morphology Fracture type: closed Metacarpal bone: unspecified metacarpal Metacarpal location: unspecified portion of metacarpal Fracture of right fifth rib S22.31XA Arthritis of right hip M16.11 (1) Metacarpal bone fracture Encounter type: initial encounter Fracture morphology: unspecified fracture morphology Fracture type: closed Metacarpal bone: unspecified metacarpal Metacarpal location: unspecified portion of metacarpal Qualified Code(s): S62.309A - Unspecified fracture of unspecified metacarpal bone, initial encounter for closed fracture
[2024-11-26 07:50] LABS: Hematocrit (blood only) 33.9 % (37.0-47.0); Hemoglobin 11.1 g/dl (12.0-16.0); Mean Corpuscular Hemoglobin 33.6 pg (25.0-34.0); Mean Corpuscular Volume 102.7 fL (80.0-100.0); Platelet Count 155 K/uL (130-400); RDW Standard Deviation 52.1 fL (36.4-46.3); Red Blood Count 3.30 M/uL (4.20-5.40); White Blood Count 3.55 K/ul (4.8-10.8)
[2024-11-26] MEDS: MULTIVITAMIN TAB PO SCH (08:44)
[2024-11-26] MEDS: METOPROLOL SUCC 25MG EXT REL TAB PO SCH (08:45)
[2024-11-26] MEDS: hydroCHLOROthiazide 25 MG TAB PO SCH (08:46)
[2024-11-26] MEDS: HYDROXYUREA 500 MG CAP PO SCH (08:46)
[2024-11-26] MEDS: VALSARTAN 80 MG TAB PO SCH (08:46)
[2024-11-26] MEDS ORDERED: NON-FORMULARY MEDICATION (Ferrous Sulfate 27 mg iron Tablet) PO SCH (09:00)
[2024-11-26] MEDS: ARTIFICIAL TEARS OP SCH (11:09)
--- NOTE | 2024-11-26 14:33 | Hospitalist Progress Note ---
Date of Service November 26, 2024 Assessment & Plan (1) Fall: (2) Metacarpal bone fracture: (3) Fracture of right fifth rib: (4) Osteoporosis: Plan This patient is an 84-year-old female with PMH of osteoporosis who sustained a ground-level fall while at home alone on 11/25. + Head strike. - LOC. Bilateral metacarpal fractures on arrival. Patient lives alone, and family expressed some concern about her returning home with bilateral hand fractures. #Fall | Bilateral metacarpal fractures Right hand XR revealed acute fractures at the 4th and 5th metacarpals Left hand XR revealed acute fracture at the 4th metacarpal Orthopedic surgery consult appreciated No plan for acute intervention Patient will quire a 2-week follow-up, at which time she will likely be switched from a ulnar gutter splint to a short arm cast for 2 additional weeks Ulnar gutter splint applied to both hands for now Neurovascular checks q4h due to hand/finger swelling Pain control with acetaminophen PRN; Oxycodone 5 mg tablets as needed for breakthrough pain Given patient lives alone, there is concern that she will not be able to perform ADLs independently with bilateral metacarpal fractures PT/OT evaluations appreciated Per PT eval, patient will require / A and HH services with a wheelchair as well as a B platform rolling walker OT eval still pending on 11/26 Maintain fall precautions while inpatient #Rib fracture Possible nondisplaced right 5th rib fracture on CXR Patient endorses pain at that location Encourage incentive spirometry Trial of lidocaine patch on 11/26 Pain control (as above) #Acute blood loss anemia Mild; Hgb trend 12.0 -> 11.1 In the setting of fall/fractures/hematomas Monitor H&H #Osteoporosis | vitamin D deficiency Patient is normally on ibandronate every 30 days Vitamin D level low at 26.7 Initiate vitamin D 25 mcg p.o. daily Recommend follow-up vitamin D check as an outpatient in 3 months #HLD Continue statin #HTN Continue amlodipine, valsartanHCTZ Disposition: Continued stay on MedSurg pending Occupational Therapy eval VTE PPx: SCDs Admission and Anticipated Discharge Date Admission Date: November 25, 2024 Supervising Physician Co-Signing Physician Notes Attending Attestation - Chart reviewed, care plan d/w AMPARO Jefferson. I agree w/ the mckinney components of his documentation. Jarrod Saenz MD Subjective Mrs. Ames denies any pain in her hands this morning, but characterizes it as "discomfort" in her fingers. This is due to the swelling caused by the hematomas. The majority of her pain is in her right anterior rib cage just below the breastbone, as well as her right hip. She rates the pain 5 out of 10 at present. Patient has been taking Tylenol and oxycodone, which have been taking the edge off of her pain. She is amenable to using a lidocaine patch for her rib cage as needed; no prior allergies to adhesives. She was also happy that orthopedics told her she would not require intervention for her fingers. ROS: Patient endorses bilateral hand discomfort, right rib cage pain, and right hip pain. Patient denies fever, chest pain, SOB, abdominal pain, numbness or tingling in the hands, or loss of function in the elbows/shoulders/lower extremities. Review of Systems Review of Systems: See HPI above Physical Exam Physical Exam: General: no acute distress; pleasant affect; non-toxic appearing; frail- appearing; cooperative; SpO2 93% on RA HEENT: normocephalic, atraumatic; PERRLA; vision and hearing intact Neck: supple; trachea midline; patient demonstrated to shrug shoulders against resistance without pain/unilateral deficits; negative C-spine tenderness; patient demonstrated ability to rotate neck left and right without pain Skin: warm, dry without signs of tenting; no cyanosis Right hand: Ulnar gutter splint in place; blind lacer strength 3/5 using thumb and 2nd/3rd digits; N/V intact; purple bruising/swelling of the 2nd and 3rd digits appreciated Left hand: Ulnar gutter splint in place; blind lacer strength 3/5 using thumb and 2nd/3rd digits; N/V intact; purple bruising/swelling of the 2nd and 3rd digits appreciated CV: chest wall NTP; RRR; S1/S2 normal; no murmurs/rubs/gallops; pulses intact and symmetric at radial, DP, and PT Lungs: no acute respiratory distress; symmetrical chest wall expansion; clear breath sounds across all lung dykes w/o adventitious sounds; no wheezing ABD: Soft, NTP; BS present; no rebound/guarding; no distention MSK: no tics or fasciculations; no edema noted in the LEs b/l, nonerythematous; patient demonstrates ability to flex/extend both elbows with 5/5 strength Neuro: A&Ox3; normal mood and affect; fluent speech; patient reports sensation is intact and symmetric in the fingers bilaterally assessed via light touch, as well as the lower extremity bilaterally assessed via light touch Results & Data Results & Data Vital Signs (Past 12 Hours) Vital Signs Temp Pulse Resp BP Pulse Ox O2 Del Method 11/26/24 07:11 36.9 C 75 16 138/66 93 Room Air PG Care Time/CCT Total # of Minutes Spent Total Time Spent with Patient: Total time spent is greater than 50% in coordination of care (as documented) at patient's floor/unit and/or counseling patient: Coding [place] [address] SUB INP/OBS CARE 2/35MIN Patient Type Established Medical Decision Making Moderate Complexity Diagnoses Fall W19.XXXA Metacarpal bone fracture S62.309A Encounter type: initial encounter Fracture morphology: unspecified fracture morphology Fracture type: closed Metacarpal bone: unspecified metacarpal Metacarpal location: unspecified portion of metacarpal Fracture of right fifth rib S22.31XA Osteoporosis M81.0 (2) Metacarpal bone fracture Encounter type: initial encounter Fracture morphology: unspecified fracture morphology Fracture type: closed Metacarpal bone: unspecified metacarpal Metacarpal location: unspecified portion of metacarpal Qualified Code(s): S62.309A - Unspecified fracture of unspecified metacarpal bone, initial encounter for closed fracture
[2024-11-26] MEDS: LIDOCAINE 5% 1 PATCH TD STA (15:59)
[2024-11-26] MEDS: ATORVASTATIN 40 MG TAB PO SCH (20:48)
[2024-11-26] MEDS ORDERED: Nursing to Pharmacy Communication SCH (22:15)
[2024-11-26] MEDS: REMOVE LIDODERM PATCH SCH (23:25)
[2024-11-27] MEDS: REMOVE LIDODERM PATCH ONE (00:41)
[2024-11-27 09:04] LABS: Hematocrit (blood only) 35.4 % (37.0-47.0); Hemoglobin 11.4 g/dl (12.0-16.0)
[2024-11-27] MEDS: CHOLECALCIFEROL 25 MCG (1000 UNITS) TAB PO SCH (11:04)
--- NOTE | 2024-11-27 13:21 | Hospitalist Progress Note ---
"Date of Service November 27, 2024 Assessment & Plan (1) Fall: (2) Metacarpal bone fracture: (3) Fracture of right fifth rib: (4) Osteoporosis: Plan This patient is an 84-year-old female with PMH of osteoporosis who sustained a ground-level fall while at home alone on 11/25. + Head strike. - LOC. Bilateral metacarpal fractures on arrival. Patient lives alone, and family expressed some concern about her returning home with bilateral hand fractures. #Fall | Bilateral metacarpal fractures Right hand XR revealed acute fractures at the 4th and 5th metacarpals Left hand XR revealed acute fracture at the 4th metacarpal Orthopedic surgery consult appreciated No plan for acute intervention Patient will quire a 2-week follow-up, at which time she will likely be switched from a ulnar gutter splint to a short arm cast for 2 additional weeks Ulnar gutter splint applied to both hands for now Neurovascular checks q4h due to hand/finger swelling Pain control with acetaminophen PRN; Oxycodone 5 mg tablets as needed for breakthrough pain Given patient lives alone, there is concern that she will not be able to perform ADLs independently with bilateral metacarpal fractures PT/OT evaluations appreciated Per PT eval, patient will require 24/7 A and HH services with a wheelchair as well as a B platform rolling walker Per OT eval, patient is well below her baseline level requiring significant assistance with self-care tasks (such as toilet hygiene and dressing her lower body); recommending inpatient rehab on discharge Maintain fall precautions while inpatient CM following #Rib fracture Possible nondisplaced right 5th rib fracture on CXR Patient endorses pain at that location Encourage incentive spirometry Lidocaine patch application QAM Pain control (as above) #Acute blood loss anemia Mild; Hgb trend 12.0 -> 11.1 -> 11.4 In the setting of fall/fractures/hematomas Significant hematoma noted in the fingers bilaterally leading to swelling and discomfort; while Hgb appears stable, will defer chemical DVT PPx for now Monitor H&H #Osteoporosis | vitamin D deficiency Patient is normally on ibandronate every 30 days Vitamin D level low at 26.7 Initiate vitamin D 25 mcg p.o. daily Recommend follow-up vitamin D check as an outpatient in 3 months #HLD Continue statin #HTN Continue amlodipine, valsartanHCTZ Disposition: Continued stay on MedSurg Patient will require rehab upon discharge VTE PPx: SCDs Admission and Anticipated Discharge Date Admission Date: November 25, 2024 Supervising Physician Co-Signing Physician Notes Attending Attestation - Chart reviewed, care plan d/w AMPARO Jefferson. I agree w/ the mckinney components of his documentation. Jarrod Saenz MD Subjective Mrs. Ames is doing okay today. She slept a little better last night, but still finds it difficult to sleep in the hospital. She denies any pain or pressure in her hands, but does note they have been swelling up. She has been able to eat and drink independently, but has difficulty using the new walker to get to the bathroom. She denies any numbness or tingling in her hands. She reports that the lidocaine patch helped yesterday with her rib pain, and is requesting an additional lidocaine patch today. Also, she was told that she will likely need rehab upon discharge, and she is requesting a flu shot prior to discharge. ROS: Patient endorses right hip/rib pain, finger swelling/discomfort, and lower extremity weakness. Patient denies fever, chest pain, chest palpitations, SOB, cough, abdominal pain, N/V/D, burning with urination, blood in the urine or stool, or changes in urinary bowel habits. Review of Systems 2 Review of Systems: See HPI above Physical Exam 2 Physical Exam: General: no acute distress; pleasant affect; non-toxic appearing; frail- appearing; cooperative; SpO2 93% on RA HEENT: normocephalic, atraumatic; PERRLA; vision and hearing intact Neck: supple; trachea midline; patient demonstrated to shrug shoulders against resistance without pain/unilateral deficits; negative C-spine tenderness; patient demonstrated ability to rotate neck left and right without pain Skin: warm, dry without signs of tenting; no cyanosis Right hand: Ulnar gutter splint in place; rv service technician strength 3/5 using thumb and 2nd/3rd digits; N/V intact; purple bruising/swelling of the 1st, 2nd, and 3rd digits appreciated (see photos below) Left hand: Ulnar gutter splint in place; rv service technician strength 3/5 using thumb and 2nd/3rd digits; N/V intact; purple bruising/swelling of the 1st, 2nd, and 3rd digits appreciated (see photos below) CV: chest wall NTP; RRR; S1/S2 normal; no murmurs/rubs/gallops; pulses intact and symmetric at radial, DP, and PT Lungs: no acute respiratory distress; symmetrical chest wall expansion; clear breath sounds across all lung dykes w/o adventitious sounds; no wheezing ABD: Soft, NTP; BS present; no rebound/guarding; no distention MSK: no tics or fasciculations; no edema noted in the LEs b/l, nonerythematous; patient demonstrates ability to flex/extend both elbows with 5/5 strength Neuro: A&Ox3; normal mood and affect; fluent speech; patient reports sensation is intact and symmetric in the fingers bilaterally assessed via light touch, as well as the lower extremity bilaterally assessed via light touch Gait: max assist from sit to stand; she exhibits a slow shuffling gait with the B platform RW, and has difficulty with [id number] when getting on the toilet Results & Data Results & Data Vital Signs (Past 12 Hours) Vital Signs Temp Pulse Resp BP Pulse Ox O2 Del Method 11/27/24 07:05 36.6 C 81 16 147/65 H 93 Room Air PG Care Time/CCT Total # of Minutes Spent Total Time Spent with Patient: Total time spent is greater than 50% in coordination of care (as documented) at patient's floor/unit and/or counseling patient: Coding [place] [address] SUB INP/OBS CARE 2/35MIN Patient Type Established Medical Decision Making Moderate Complexity Diagnoses Fall W19.XXXA Metacarpal bone fracture S62.309A Encounter type: initial encounter Fracture morphology: unspecified fracture morphology Fracture type: closed Metacarpal bone: unspecified metacarpal Metacarpal location: unspecified portion of metacarpal Fracture of right fifth rib S22.31XA Osteoporosis M81.0 (2) Metacarpal bone fracture Encounter type: initial encounter Fracture morphology: unspecified fracture morphology Fracture type: closed Metacarpal bone: unspecified metacarpal M etacarpal location: unspecified portion of metacarpal Qualified Code(s): S 62.309A - Unspecified fracture of unspecified metacarpal bone, initial encounter for closed fracture"
[2024-11-27] MEDS: LIDOCAINE 5% 1 PATCH TD STA (15:48)
[2024-11-27] MEDS: POLYETHYLENE (MIRALAX) 17 GM PACK PO PRN (19:49)
[2024-11-27] MEDS ORDERED: Nursing to Pharmacy Communication SCH (23:30)
[2024-11-28] MEDS: REMOVE LIDODERM PATCH SCH (01:09)
--- NOTE | 2024-11-28 07:47 | Orthopedic Progress Note ---
Date of Service November 28, 2024 Assessment & Plan (1) Metacarpal bone fracture: * Continue Current Treatment * Bilateral metacarpal fractures * Recommend maintain splint to b/l hand * Weight bearing status: NWB b/l hand * Ok for platform walker and feeding, ADLs, etc * Daily treatment: Physical Therapy/ Occupational Therapy per protocol * Pain control * DVT prophylaxis per primary team * Disposition: Home * F/u 2 weeks for repeat XR and casting * Remainder care per primary team * Stable for discharge from ortho standpoint Subjective .Active Problems: S/p bilateral hand fractures 84 y/o female with R 4-5th metacarpal and L 4th metacarpal fractures. Doing well overall, pain managed and improved function. Splints intact. Denies fever/chills, chest pain/SOB, nausea/vomiting. Otherwise no complaints. Review of Systems All systems reviewed & are unremarkable except as noted in HPI & below. Physical Exam . * General: Alert and oriented, no acute distress * Constitutional: well-developed, well-nourished. * Respiratory: Normal respiratory effort, no distress * Gastrointestinal: No tenderness to palpation, no rigidity or guarding. * Skin: No rash or lesion. * Neurologic: Grossly normal * Musculoskeletal: Bilateral ulnar gutter splints intact. Moderate soft tissue edema and ecchymosis R hand, mild L hand. Diffuse TTP ulnar aspect of b/l hands through splint. AROM 1-3 finger ROM intact bilaterally.. Sensation intact radial/median/ulnar nerve distributions b/l. Brisk capillary refill. Results & Data Results & Data Laboratory Results . Diagnostic Findings . PG Care Time/CCT Total # of Minutes Spent Total Time Spent with Patient: Total time spent is greater than 50% in coordination of care (as documented) at patient's floor/unit and/or counseling patient: Coding [place] [address] SUB INP/OBS CARE 03/26MIN Patient Type Established History Problem Focused Exam Problem Focused Medical Decision Making Straight Forward Diagnoses Metacarpal bone fracture S62.309A Encounter type: initial encounter Fracture morphology: unspecified fracture morphology Fracture type: closed Metacarpal bone: unspecified metacarpal Metacarpal location: unspecified portion of metacarpal (1) Metacarpal bone fracture Encounter type: initial encounter Fracture morphology: unspecified fracture morphology Fracture type: closed Metacarpal bone: unspecified metacarpal Metacarpal location: unspecified portion of metacarpal Qualified Code(s): S62.309A - Unspecified fracture of unspecified metacarpal bone, initial encounter for closed fracture
[2024-11-28] MEDS: LIDOCAINE 5% 1 PATCH TD SCH (08:42)
--- NOTE | 2024-11-28 14:49 | Hospitalist Progress Note ---
"Date of Service November 28, 2024 Assessment & Plan (1) Fall: (2) Metacarpal bone fracture: (3) Fracture of right fifth rib: (4) Osteoporosis: Plan This patient is an 84-year-old female with PMH of osteoporosis who sustained a ground-level fall while at home alone on 11/25. + Head strike. - LOC. Bilateral metacarpal fractures on arrival. Patient lives alone, and family expressed some concern about her returning home with bilateral hand fractures. #Fall | Bilateral metacarpal fractures Right hand XR revealed acute fractures at the 4th and 5th metacarpals Left hand XR revealed acute fracture at the 4th metacarpal Orthopedic surgery consult appreciated No plan for acute intervention Patient will quire a 2-week follow-up, at which time she will likely be switched from a ulnar gutter splint to a short arm cast for 2 additional weeks Ulnar gutter splint applied to both hands for now Neurovascular checks q4h due to hand/finger swelling Pain control with acetaminophen PRN; Oxycodone 5 mg tablets as needed for breakthrough pain Given patient lives alone, there is concern that she will not be able to perform ADLs independently with bilateral metacarpal fractures PT/OT evaluations appreciated Per PT eval, patient will require 24/7 A and HH services with a wheelchair as well as a B platform rolling walker Per OT eval, patient is well below her baseline level requiring significant assistance with self-care tasks (such as toilet hygiene and dressing her lower body); recommending inpatient rehab on discharge Maintain fall precautions while inpatient CM following #Rib fracture Possible nondisplaced right 5th rib fracture on CXR Patient endorses pain at that location Encourage incentive spirometry Lidocaine patch application QAM Pain control (as above) #Acute blood loss anemia Mild; Hgb trend 12.0 -> 11.1 -> 11.4 In the setting of fall/fractures/hematomas Significant hematoma noted in the fingers bilaterally leading to swelling and discomfort Monitor H&H while Hgb appears stable, will defer chemical DVT PPx for now #Osteoporosis | vitamin D deficiency Patient is normally on ibandronate every 30 days Vitamin D level low at 26.7 Initiate vitamin D 25 mcg p.o. daily Recommend follow-up vitamin D check as an outpatient in 3 months #HLD Continue statin #HTN Continue amlodipine, valsartanHCTZ Disposition: Continued stay on MedSurg Patient will require rehab upon discharge VTE PPx: SCDs Admission and Anticipated Discharge Date Admission Date: November 25, 2024 Subjective No acute events Currently no new complaints Review of Systems Review of Systems: Comprehensive ROS completed and is otherwise negative. Physical Exam Physical Exam: Gen: no acute distress, lying in bed comfortable HEENT: NC/AT, MMM Lungs: nonlabored breathing, CTAB CVS: s1s2nl, RRR Abd: nl bowel sounds, soft, NT / ND : no kim Ext: no edema, b/l hands in splints Neuro: AAOx3 Psych: calm cooperative Results & Data Results & Data Vital Signs (Past 12 Hours) Vital Signs Temp Pulse Resp BP Pulse Ox O2 Del Method 11/28/24 07:17 36.7 C 71 16 108/62 93 Room Air PG Care Time/CCT Total # of Minutes Spent Total Time Spent with Patient: Total time spent is greater than 50% in coordination of care (as documented) at patient's floor/unit and/or counseling patient: Coding Level of Care Code 25614 SUB INP/OBS CARE 2/35MIN Diagnoses Fall W19.XXXA Metacarpal bone fracture S62.309A Encounter type: initial encounter Fracture morphology: unspecified fracture morphology Fracture type: closed Metacarpal bone: unspecified metacarpal Metacarpal location: unspecified portion of metacarpal Fracture of right fifth rib S22.31XA Osteoporosis M81.0 (2) Metacarpal bone fracture Encounter type: initial encounter Fracture morphology: unspecified fracture morphology Fracture type: closed Metacarpal bone: unspecified metacarpal Metacarpal location: unspecified portion of metacarpal Qualified Code(s): S62.309A - Unspecified fracture of unspecified metacarpal bone, initial encounter for closed fracture"
[2024-11-29] MEDS: BUTALBITAL/ACETAMIN/CAFFEINE TAB PO PRN (09:08)
--- NOTE | 2024-11-29 16:43 | Hospitalist Progress Note ---
"Date of Service November 29, 2024 Assessment & Plan (1) Fall: (2) Metacarpal bone fracture: (3) Fracture of right fifth rib: (4) Osteoporosis: Plan This patient is an 84-year-old female with PMH of osteoporosis who sustained a ground-level fall while at home alone on 11/25. + Head strike. - LOC. Bilateral metacarpal fractures on arrival. Patient lives alone, and family expressed some concern about her returning home with bilateral hand fractures. #Fall | Bilateral metacarpal fractures Right hand XR revealed acute fractures at the 4th and 5th metacarpals Left hand XR revealed acute fracture at the 4th metacarpal Orthopedic surgery consult appreciated No plan for acute intervention Patient will quire a 2-week follow-up, at which time she will likely be switched from a ulnar gutter splint to a short arm cast for 2 additional weeks Ulnar gutter splint applied to both hands for now Neurovascular checks q4h due to hand/finger swelling Pain control with acetaminophen PRN; Oxycodone 5 mg tablets as needed for breakthrough pain Given patient lives alone, there is concern that she will not be able to perform ADLs independently with bilateral metacarpal fractures PT/OT evaluations appreciated Per PT eval, patient will require 24/7 A and HH services with a wheelchair as well as a B platform rolling walker Per OT eval, patient is well below her baseline level requiring significant assistance with self-care tasks (such as toilet hygiene and dressing her lower body); recommending discharge to rehab vs SNF Maintain fall precautions while inpatient CM following #Rib fracture Possible nondisplaced right 5th rib fracture on CXR Patient endorses pain at that location Encourage incentive spirometry Lidocaine patch application QAM Pain control (as above) #Acute blood loss anemia Mild; Hgb trend 12.0 -> 11.1 -> 11.4 In the setting of fall/fractures/hematomas Significant hematoma noted in the fingers bilaterally leading to swelling and discomfort Monitor H&H while Hgb appears stable, will defer chemical DVT PPx for now #Osteoporosis | vitamin D deficiency Patient is normally on ibandronate every 30 days Vitamin D level low at 26.7 Initiate vitamin D 25 mcg p.o. daily Recommend follow-up vitamin D check as an outpatient in 3 months #HLD Continue statin #HTN Continue amlodipine, valsartanHCTZ Disposition: Continued stay on MedSurg Patient will require rehab upon discharge VTE PPx: SCDs Admission and Anticipated Discharge Date Admission Date: November 25, 2024 Subjective No acute events Currently no new complaints Review of Systems Review of Systems: Comprehensive ROS completed and is otherwise negative. Physical Exam Physical Exam: Gen: no acute distress, lying in bed comfortable HEENT: NC/AT, MMM Lungs: nonlabored breathing, CTAB CVS: s1s2nl, RRR Abd: nl bowel sounds, soft, NT / ND : no kim Ext: no edema, b/l hands in splints Neuro: AAOx3 Psych: calm cooperative Results & Data Results & Data Vital Signs (Past 12 Hours) Vital Signs Temp Pulse Resp BP Pulse Ox O2 Del Method 11/29/24 14:54 37.0 C 79 16 123/61 93 Room Air 11/29/24 08:00 Room Air 11/29/24 07:39 36.6 C 77 16 112/52 L 92 Room Air PG Care Time/CCT Total # of Minutes Spent Total Time Spent with Patient: Total time spent is greater than 50% in coordination of care (as documented) at patient's floor/unit and/or counseling patient: Coding Level of Care Code 05789 SUB INP/OBS CARE 2/35MIN Diagnoses Fall W19.XXXA Metacarpal bone fracture S62.309A Encounter type: initial encounter Fracture morphology: unspecified fracture morphology Fracture type: closed Metacarpal bone: unspecified metacarpal Metacarpal location: unspecified portion of metacarpal Fracture of right fifth rib S22.31XA Osteoporosis M81.0 (2) Metacarpal bone fracture Encounter type: initial encounter Fracture morphology: unspecified fracture morphology Fracture type: closed Metacarpal bone: unspecified metacarpal Metacarpal location: unspecified portion of metacarpal Qualified Code(s): S62.309A - Unspecified fracture of unspecified metacarpal bone, initial encounter for closed fracture"
[2024-11-29 23:10] VITALS: O2SAT 94
[2024-11-30 08:30] LABS: Hematocrit (blood only) 35.7 % (37.0-47.0); Hemoglobin 11.8 g/dl (12.0-16.0); Mean Corpuscular Hemoglobin 33.6 pg (25.0-34.0); Mean Corpuscular Volume 101.7 fL (80.0-100.0); Platelet Count 169 K/uL (130-400); RDW Standard Deviation 50.3 fL (36.4-46.3); Red Blood Count 3.51 M/uL (4.20-5.40); White Blood Count 2.93 K/ul (4.8-10.8)
[2024-11-30 08:51] LABS: Anion Gap 5.0 (3-11); Blood Urea Nitrogen 24.0 mg/dl (6-23); Calcium 9.0 mg/dl (8.6-10.3); Carbon Dioxide 32.0 mmol/L (21-32); Chloride 103.0 mmol/L (98-107); Creatinine Clr Calc Pharmacy 56.9 ml/min; Glucose 96.0 mg/dl (70-99(Fasting)); Magnesium 1.9 mg/dl (1.7-2.4); Potassium 3.7 mmol/L (3.5-5.1); Sodium 140.0 mmol/L (136-145)
--- NOTE | 2024-11-30 18:34 | Hospitalist Progress Note ---
"Date of Service November 30, 2024 Assessment & Plan (1) Fall: (2) Metacarpal bone fracture: (3) Fracture of right fifth rib: (4) Osteoporosis: Plan This patient is an 84-year-old female with PMH of osteoporosis who sustained a ground-level fall while at home alone on 11/25. + Head strike. - LOC. Bilateral metacarpal fractures on arrival. Patient lives alone, and family expressed some concern about her returning home with bilateral hand fractures. #Fall | Bilateral metacarpal fractures Right hand XR revealed acute fractures at the 4th and 5th metacarpals Left hand XR revealed acute fracture at the 4th metacarpal Orthopedic surgery consult appreciated No plan for acute intervention Patient will quire a 2-week follow-up, at which time she will likely be switched from a ulnar gutter splint to a short arm cast for 2 additional weeks Ulnar gutter splint applied to both hands for now Neurovascular checks q4h due to hand/finger swelling Pain control with acetaminophen PRN; Oxycodone 5 mg tablets as needed for breakthrough pain Given patient lives alone, there is concern that she will not be able to perform ADLs independently with bilateral metacarpal fractures PT/OT evaluations appreciated Per PT eval, patient will require 24/7 A and HH services with a wheelchair as well as a B platform rolling walker Per OT eval, patient is well below her baseline level requiring significant assistance with self-care tasks (such as toilet hygiene and dressing her lower body); recommending inpatient rehab on discharge Maintain fall precautions while inpatient CM following #Rib fracture Possible nondisplaced right 5th rib fracture on CXR Patient endorses pain at that location Encourage incentive spirometry Lidocaine patch application QAM Pain control (as above) #Acute blood loss anemia Mild; Hgb trend 12.0 -> 11.1 -> 11.4 > 11.8 In the setting of fall/fractures/hematomas Significant hematoma noted in the fingers bilaterally leading to swelling and discomfort; while Hgb appears stable, will defer chemical DVT PPx for now Monitor H&H #Osteoporosis | vitamin D deficiency Patient is normally on ibandronate every 30 days Vitamin D level low at 26.7 Initiate vitamin D 25 mcg p.o. daily Recommend follow-up vitamin D check as an outpatient in 3 months #HLD Continue statin #HTN Continue amlodipine, valsartanHCTZ Disposition: Continued stay on MedSurg Patient will require rehab upon discharge VTE PPx: SCDs Admission and Anticipated Discharge Date Admission Date: November 25, 2024 Subjective No acute events Currently no new complaints Review of Systems Review of Systems: Comprehensive ROS completed and is otherwise negative. Physical Exam Physical Exam: Gen: no acute distress, lying in bed comfortable HEENT: NC/AT, MMM Lungs: nonlabored breathing, CTAB CVS: s1s2nl, RRR Abd: nl bowel sounds, soft, NT / ND : no kim Ext: no edema, b/l hands in splints Neuro: AAOx3 Psych: calm cooperative Results & Data Results & Data Vital Signs (Past 12 Hours) Vital Signs Temp Pulse Resp BP Pulse Ox O2 Del Method 11/30/24 15:39 36.7 C 76 18 109/62 94 Room Air 11/30/24 08:13 36.3 C L 81 18 147/73 H 94 Room Air 11/30/24 07:35 Room Air PG Care Time/CCT Total # of Minutes Spent Total Time Spent with Patient: Total time spent is greater than 50% in coordination of care (as documented) at patient's floor/unit and/or counseling patient: Coding Level of Care Code 29753 SUB INP/OBS CARE 03/26MIN Diagnoses Fall W19.XXXA Metacarpal bone fracture S62.309A Encounter type: initial encounter Fracture morphology: unspecified fracture morphology Fracture type: closed Metacarpal bone: unspecified metacarpal Metacarpal location: unspecified portion of metacarpal Fracture of right fifth rib S22.31XA Osteoporosis M81.0 (2) Metacarpal bone fracture Encounter type: initial encounter Fracture morphology: unspecified fracture morphology Fracture type: closed Metacarpal bone: unspecified metacarpal Metacarpal location: unspecified portion of metacarpal Qualified Code(s): S62.309A - Unspecified fracture of unspecified metacarpal bone, initial encoun ter for closed fracture"
[2024-12-01 07:41] VITALS: BP 159/75; PULSE 86; RESP 16; TEMP 97.5
--- NOTE | 2024-12-01 09:40 | Communication Note ---
Date of Service: December 01, 2024 Splint re-wrapped to right hand. Continue plan, maintain b/l ulnar gutter splint, NWB through b/l hand (platform walker ok), plan for office f/u in the [place] 2-3 weeks
--- NOTE | 2024-12-01 13:04 | Discharge Summary ---
Discharge Summary Date of Service December 01, 2024 Principal Dx & Hospital Course #1 = Principal Diagnosis (1) Fall: (2) Metacarpal bone fracture: (3) Fracture of right fifth rib: (4) Osteoporosis: Plan This patient is an 84-year-old female with PMH of osteoporosis who sustained a ground-level fall while at home alone on 11/25. + Head strike. - LOC. Bilateral metacarpal fractures on arrival. Patient lives alone, and family expressed some concern about her returning home with bilateral hand fractures. #Fall | Bilateral metacarpal fractures Right hand XR revealed acute fractures at the 4th and 5th metacarpals Left hand XR revealed acute fracture at the 4th metacarpal Orthopedic surgery consult appreciated No plan for acute intervention Patient will require a 2-week follow-up, at which time she will likely be switched from a ulnar gutter splint to a short arm cast for 2 additional weeks Ulnar gutter splint applied to both hands for now Neurovascular checks stable Pain control with acetaminophen PRN; Oxycodone 5 mg tablets as needed for breakthrough pain Given patient lives alone, there is concern that she will not be able to perform ADLs independently with bilateral metacarpal fractures PT/OT evaluations appreciated- pt will be discharged to SNF Maintain fall precautions while inpatient CM support appreciated #Rib fracture Possible nondisplaced right 5th rib fracture on CXR Patient endorses pain at that location Encourage incentive spirometry Lidocaine patch application QAM Pain control (as above) #Acute blood loss anemia Mild; Hgb trend 12.0 -> 11.1 -> 11.4 > 11.8 In the setting of fall/fractures/hematomas Significant hematoma noted in the fingers bilaterally leading to swelling and discomfort; while Hgb appears stable, will defer chemical DVT PPx for now Monitor H&H #Osteoporosis | vitamin D deficiency Patient is normally on ibandronate every 30 days Vitamin D level low at 26.7 Initiate vitamin D 25 mcg p.o. daily Recommend follow-up vitamin D check as an outpatient in 3 months #HLD Continue statin #HTN Continue amlodipine, valsartanHCTZ Disposition: discharged to SNF VTE PPx: SCDs Admission HPI Per Admitting Provider Mrs. Ames is an 84-year-old female with PMH of lower GI bleed, diverticulitis, and fibromyalgia. She presented on 11/25 after sustaining a ground-level fall at home. Patient lives alone. She was carrying a dish of scrambled eggs into the kitchen when she fell forward and "flew" under the kitchen table. Given she was holding a plate, she could not catch herself. Positive head strike. No LOC. Patient takes aspirin 81 mg daily but no other blood thinners. She landed on her hands and right hip. Patient does not use ambulatory assistance devices at baseline. She then called her son/bnefosjc-dv-rip who live across the street. Her grandson was still home, and helped her get back up. Patient thought she might have a "sprained" the hands and her fingers before they start to swell up. She denies any pain/discomfort in her 5th/4th metacarpals at time of admission. However she does report that she has right rib pain just below the breastbone, and it hurts to take deep breaths. Patient took her regular morning medicine today. No recent change in medications. She manages her own medicine at home. She has no prior injuries to her hands or wrists. However, she does have a history of osteoporosis and takes ibandronate monthly for this. No sick contacts to her knowledge. Patient denies smoking, tobacco use, or recent alcohol use. Patient is hypertensive at 150/106 at time admission; vitals otherwise stable. ED Course: Ibuprofen 600mg p.o. x 1 ROS: Patient endorses headaches (chronic), pleuritic CP (right sided rib pain with deep breaths). Patient denies fever, chills, night-sweats, dizziness, lightheadedness, pain in the hands, chest pain, cough, hemoptysis, SOB, abdominal pain, N/V/D, or change in urinary bowel habits. Discharge Plan Discharge Items Patient Disposition: Transfer Long Term Fac Reason For Visit: FALL, B/L METACARPAL FRACTURES, RIB FRACTURE Discharge Diagnosis: FALL, B/L METACARPAL FRACTURES, RIB FRACTURE Condition on Discharge: Fair Activity: Resume your previous activity Non-emergency contact: Primary Care Provider Call non-emergency contact if: you have any medication questions, your symptoms worsen and your pain is not controlled Follow-up/Referrals: [facility] [Provider Group] Seun Hillman DO [Primary Care Provider] - Diet: Regular Addtl Attending Provider Instructions: You were admitted for management of fall, hand fractures, and rib fracture. You were evaluated by orthopedic team and your hand fractures stabilized. You were evaluated physical therapy and recommended fdc facility. You will need to follow up with orthopedic team as outpatient for further assessment and management of your fractures. You are medically stable for discharge. You will need to follow up with your primary care doctor in about 7 to 10 days. It was a pleasure being a part of your medical care team during your stay at [facility]. Pending Studies at Discharge: No Stand-Alone Forms: [facility] Skilled Items Patient informed of condition?: Yes DNR: Yes Discharge Level of Care: Skilled Communicable Disease: No Discharge Prognosis: Stable Lines: None Urinary Catheter: No Medications and DC Order Prescriptions: New oxycodone 5 mg Tablet 5 mg PO Q6H PRN (Reason: pain) Qty: 10 0RF cholecalciferol (vitamin D3) 25 mcg (1,000 unit) Capsule 25 mcg PO QAM Qty: 30 0RF sennosides-docusate sodium [Senna with Docusate Sodium] 8.6-50 mg tablet 1 tab-cap PO BID Qty: 60 0RF lidocaine 5 % adhesive patch,medicated 1 patch topical DAILY Qty: 30 0RF Rx Instructions: leave on most painful area for up to 12 hrs Continued Systane Complete 0.6 % drops 1 drp OP DAILY Qty: 20 1RF atorvastatin 40 mg tablet 40 mg PO Q OTHER DAY 90 Days Qty: 45 3RF Rx Instructions: TAKES QPM. amlodipine 5 mg tablet 5 mg PO QAM Qty: 90 3RF Rx Instructions: TAKE 1 TABLET EVERY MORNING valsartan-hydrochlorothiazide 320-25 mg tablet 1 tab PO QAM Qty: 90 3RF Rx Instructions: TAKE 1 TABLET ONCE DAILY metoprolol succinate 25 mg tablet extended release 24 hr 25 mg PO DAILY Qty: 90 3RF ibandronate 150 mg tablet 150 mg PO Q30D Qty: 3 3RF Rx Instructions: USUALLY AROUND THE 20TH OF THE MONTH. klgaykzlna-mmbyvxiojzddp-yhlw 50-325-40 mg tablet 1 tab PO Q6H PRN (Reason: Complex tension headache) Qty: 120 0RF loperamide [Imodium A-D] 2 mg capsule 2 mg PO Q6H PRN (Reason: Constipation) aspirin 81 mg tablet,delayed release (DR/EC) 81 mg PO QPM Qty: 90 1RF multivitamin Tablet 1 tab PO QAM hydroxyurea 500 mg capsule 500 mg PO QAM ferrous sulfate 27 mg iron Tablet 27 mg PO DAILY Discharge Orders: Discharge Order (Routine); Ordered 12/01/24 Ordered By: Ekta Capone Admission Data Admit Date/Time: 11/25/24 15:43 Attending Provider: Ekta Capone Admit Provider: Jarrod Saenz Primary Care Provider: Seun Hillman Other Providers: Mainor Brooke; Antoine Downey; Jhonny Skinner at [facility] Stay Data Consultations 11/25/24 15:41 ED Decision to Admit Stat 11/25/24 15:43 Consult Orthopedic Surgery Routine Diagnostic Imagining Performed 11/25/24 09:19 CT cervical spine wo con Stat CT head/brain wo con Stat Pending Results Patient Have Any Pending Studies at Discharge: No Discharge Instructions Given to Patient (Per Discharging Provider) You were admitted for management of fall, hand fractures, and rib fracture. You were evaluated by orthopedic team and your hand fractures stabilized. You were evaluated physical therapy and recommended fdc facility. You will need to follow up with orthopedic team as outpatient for further assessment and management of your fractures. You are medically stable for discharge. You will need to follow up with your primary care doctor in about 7 to 10 days. It was a pleasure being a part of your medical care team during your stay at [facility]. Total Time Total Time Spent Total Time Spent (In Minutes): 44 Coding Level of Care Code 00142 INP/OBS DISCH >30 MIN Diagnoses Fall W19.XXXA Metacarpal bone fracture S62.309A Encounter type: initial encounter Fracture morphology: unspecified fracture morphology Fracture type: closed Metacarpal bone: unspecified metacarpal Metacarpal location: unspecified portion of metacarpal Fracture of right fifth rib S22.31XA Osteoporosis M81.0
--- NOTE | 2024-12-02 07:01 | Coding Query ---
To promote full compliance with coding requirements relating to patient care, physician participation is requested in all cases of medical insurance coder uncertainty. Please assist us with the question(s) below: Coding Question(s): It was noted throughout the record that the patient has osteoporosis. According to coding guidelines "a code for osteoporotic fracture, and not a traumatic fracture, should be used for any patient with known osteoporosis who suffers a fracture, even if the patient had a minor fall or trauma, if that fall or trauma would not usually break a normal, healthy bone." Please indicate below the type of fracture: Physician's Response(s): ( ) Osteoporotic fracture of right metacarpal ( ) Traumatic fracture of right metacarpal ( ) Other, please specify ( ) Osteoporotic fracture of left metacarpal ( ) Traumatic fracture of left metacarpal ( ) Other, please specify ( ) Osteoporotic fracture of right rib ( ) Traumatic fracture of right rib ( ) Other, please specify Pt had a fall lead to the above fractures. I would say she had traumatic fractures. DEBORA
== END 2024-12-01 14:35 | DRG 543 ==
LOC: SUATTDRO → ED 08:53 → 3N 15:43 → SUATTDRO 15:43 → 3N 16:45